=== PATIENT | female | born 1950 | race Caucasian/White ===

== ENCOUNTER 2020-06-28 12:30 | Emergency (ER) | payer MEDICARE, MEDICAID, SELFPAY ==
[2020-06-28 12:41] VITALS: RESP 18; TEMP 36.6; BMI 15.8
[2020-06-28 12:53] VITALS: BP 117/63; PULSE 88; TEMP 36.6; O2SAT 98
[2020-06-28 12:58] LABS: Glucose, Whole Blood 112 mg/dL (60-115)
--- NOTE | 2020-06-28 13:01 | ED.FALL ---
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 prominent bilateral perihilar markings but no confluent infiltrate or pleural effusion. The heart size and pulmonary vascularity is normal. No gross bony abnormality seen. XR/XR knee LT 2V IMPRESSION: No acute fracture or dislocation right knee. There is mild degenerative changes medial and patellofemoral compartments. Prominent bilateral parahilar markings but no confluent infiltrate or pleural effusion. Dictated By:NGOC ARGUETA MD Signed By:<Electronically signed by NGOC ARGUETA MD in OV>06/28/20 1457 DD/ 1302 TD/TT: Food [employer] Beverage Lead: KANE ECG Data Interpretation: Normal sinus rhythm Rate 85 NJ interval within normal limits No ectopy No acute ST segment changes No significant change from previous Critical Care Time Critical Care Time Critical Care Time: Yes Total Critical Care Time: 65 Attestation: Rapid evaluation upon arrival. Multiple re-evaluation including neurological exam, consultation to neurosurgical team at [facility] for consultation and transfer to [facility] for further evaluation. Discharge Plan Discharge Clinical Impression: Fall, Contusion, Abnormal CT scan, cervical spine, Unsteady gait Patient Disposition: Xfer Other Prescriptions: No Action levothyroxine 25 mcg tablet 25 mcg PO QAM Qty: 90 RF: 2 docusate sodium 100 mg capsule 100 mg PO DAILY PRN (Reason: constipation) 90 Days Qty: 90 RF: 4 solifenacin [Vesicare] 5 mg tablet 5 mg PO DAILY RF: 0 Myrbetriq 25 mg tablet extended release 24 hr 25 mg PO DAILY RF: 0 lisinopril 5 mg tablet 5 mg PO DAILY RF: 0 acetaminophen 325 mg tablet 650 mg PO Q6H PRN (Reason: pain) RF: 0 fluoxetine 40 mg capsule PO RF: 0 polyethylene glycol 3350 17 gram/dose powder 1 - 2 g PO DAILY RF: 0 lithium carbonate 300 mg capsule 300 mg PO BEDTIME RF: 0 lamotrigine 150 mg tablet 150 mg PO BID RF: 0
--- NOTE | 2020-06-28 13:03 | ECG_ITS ---
Test Reason : FALL Blood Pressure : / mmHG Vent. Rate : 085 BPM Atrial Rate : 085 BPM P-R Int : 144 ms QRS Dur : 098 ms QT Int : 410 ms P-R-T Axes : 060 064 059 degrees QTc Int : 487 ms Normal sinus rhythm Normal ECG When compared with ECG of 04-MAR-2019 20:04, T wave amplitude has decreased in Lateral leads Referred By: Aftab Auguste Electronically Signed By:BARBRA BHATTI
[2020-06-28 13:20] LABS: Basophils Percent Auto 0.3 % (0-2); Hematocrit 37.8 % (37-47); Hemoglobin 12.3 g/dl (12.0-16.0); Imm Gran Abs Auto 0.07 X10*3/uL (0.00-0.03); Imm Gran Pct Auto 0.5 % (0.0-0.4); Lymphocytes Absolute Auto 0.4 X10*3/uL (1.2-4.9); Lymphocytes Percent Auto 3.1 % (20-40); MANUAL DIFF FLAG NO; Mean Corpuscular HGB Conc 32.5 g/dl (31.0-35.0); Mean Corpuscular Hemoglobin 31.9 pg (27.0-33.0); Mean Corpuscular Volume 98.2 fL (80-98); Mean Platelet Volume 9.7 fL (9.4-12.3); Monocytes Absolute Auto 0.8 X10*3/uL (0.1-1.2); Monocytes Percent Auto 6.2 % (2-11); Neutrophils Absolute Auto 12.1 X10*3/uL (2.0-8.3); Neutrophils Percent Auto 89.9 % (45-73); Platelet Count 227 X10*3/uL (160-400); Red Blood Count 3.85 X10*6/uL (4.20-5.50); Red Cell Distribution Width 11.9 % (11.0-16.0); SCAN SMEAR FLAG 1; White Blood Count 13.5 X10*3/uL (4.8-10.8)
[2020-06-28 13:31] LABS: Prothrombin Time 11.7 SEC (10.8-13.0)
[2020-06-28 13:34] LABS: Partial Thromboplastin Time 29.9 SEC (24.1-38.0)
[2020-06-28 13:44] LABS: Alanine Aminotransferase 30 U/L (0-31); Albumin Level 4.4 g/dL (3.5-5.0); Alkaline Phosphatase 86 U/L (39-117); Anion Gap 13 (12-20); Aspartate Amino Transferase 37 U/L (5-31); Bilirubin Total 0.8 mg/dL (0.0-1.0); Blood Urea Nitrogen 29 mg/dL (9-16); Calcium 10.3 mg/dL (8.4-10.2); Carbon Dioxide 27 mmol/L (22-29); Chloride 108 mmol/L (96-108); Creatinine Clr Calc Pharmacy 41.4; Estimated Glomerular Filt Rate 60; Glucose Random 119 mg/dL (60-115); Potassium 4.2 mmol/l (3.3-5.1); Sodium 144 mmol/L (135-145); Total Protein 6.8 g/dL (6.5-8.0)
[2020-06-28 13:48] LABS: Troponin-I High Sensitivity 7.2 ng/L (<3.5-17.0)
[2020-06-28 13:56] VITALS: BP 108/60; PULSE 84; RESP 18; O2SAT 98
[2020-06-28] MEDS: 0.9 % Sodium Chloride 1,000 ML 999 ML IV (13:56)
[2020-06-28 14:00] LABS: COVID-19 Test Negative (Negative)
[2020-06-28 14:22] LABS: Appearance Urine CLEAR; Color Urine YELLOW; Glucose Urine UA NEG (NEG); Leukocyte Esterase Urine NEG (NEG); Nitrite Urine NEG (NEG); Urine Blood TRACE (NEG); Urine Ketones 5 MG/DL (NEG); Urine Protein NEG (NEG-TRACE)
[2020-06-28 14:33] LABS: Squamous Epithelial Cell Urine TRACE /LPF; WBC Urine 0 /HPF (0-4)
[2020-06-28 15:40] VITALS: BP 126/61; PULSE 85; RESP 20; TEMP 36.6; O2SAT 95
--- NOTE | 2020-06-28 15:43 | PC.NURSE ---
CALL PLACED TO [facility] PT TX LINE @ TRADE SPECIALIST LUIS ENRIQUE REQUEST @ [phone] ANSWERS, TAKES PT INFO, CALL BACK NUMBER AND ASKS TO SPEAK WITH LUIS ENRIQUE . LUIS ENRIQUE TAKES OVER CALL RIGHT AWAY.
--- NOTE | 2020-06-28 15:51 | PC.NURSE ---
RETURN CALL FROM NICO FROM THE [facility] PT TX LINE @ [phone] ASKS TO SPEAK WITH GAS WELDING EQUIPMENT MECHANIC LUIS ENRIQUE LUIS ENRIQUE TAKES OVER CALL RIGHT AWAY
--- NOTE | 2020-06-28 17:24 | PC.NURSE ---
Pt resting on stretcher, denies pain/discomfort. Collar intact. Awaiting to hear back from [facility]
--- NOTE | 2020-06-28 18:25 | PC.NURSE ---
Spoke with Amelia (from [facility]) with permission of pt, updated on plan at this time.
[2020-06-28 19:01] VITALS: BP 124/68; PULSE 82; RESP 15
--- NOTE | 2020-06-28 19:10 | PC.NURSE ---
Awaiting [facility] to view images and give recomendations for patient care.
[2020-06-28 19:46] VITALS: BP 124/61; PULSE 83; RESP 17
--- NOTE | 2020-06-28 19:46 | PC.NURSE ---
NURSE TO NURSE GIVEN TO ROBERTO HODGES AT [facility].
== END 2020-06-28 19:53 | disposition other institution (70) ==
PROVIDERS: Nurse Practitioner Primary Care; Emergency Provider Emergency Medicine
DX: S80.01XA Contusion of right knee, initial encounter (principal); S80.02XA Contusion of left knee, initial encounter; M25.562 Pain in left knee; M25.561 Pain in right knee; M54.5 Low back pain; M54.2 Cervicalgia; W18.30XA Fall on same level, unspecified, initial encounter; Y93.9 Activity, unspecified; Y92.009 Unspecified place in unspecified non-institutional (private) residence as the place of occurrence of the external cause; Y99.9 Unspecified external cause status; Z79.899 Other long term (current) drug therapy; Z20.828 Contact with and (suspected) exposure to other viral communicable diseases
CPT/HCPCS: 36415; 70450; 71045; 72125; 73560; 74176; 80053; 81001; 82550; 82947; 84484; 85025; 85610; 85730; 87635; 93005; 96360; 99285; 99291

== ENCOUNTER 2020-08-24 01:19 | Emergency (ER) | payer MEDICARE, MEDICAID, SELFPAY ==
[2020-08-24] VITALS (10 sets, daily range): BP systolic 100–140; BP diastolic 60–86; PULSE 63–77; RESP 15–18; TEMP 36.6; O2SAT 97–98; BMI 18.6
--- NOTE | ~2020-08-24 | XR_ITS ---
EXAMINATION: XR HIP, RIGHT CLINICAL INFORMATION: Fall with pain COMPARISON: None TECHNIQUE: Two views of the right hip. Frontal view of the pelvis. FINDINGS: There is no fracture or dislocation. The hips are well aligned. Mild degenerative changes of both hips with narrowing and sclerosis. The pelvic rim is intact. The sacroiliac joints are intact. Degenerative changes noted at the pubic symphysis. The bowel gas pattern is unremarkable. Scoliotic curvature of the spine with degenerative changes. XR/XR hip RT w PEL1V IMPRESSION: No acute fracture or malalignment. Mild degenerative changes.
[2020-08-24] MEDS: 0.9 % Sodium Chloride 1,000 ML 999 ML IV ×2 (01:51→05:31)
--- NOTE | 2020-08-24 01:51 | ECG_ITS ---
Test Reason : FALL Blood Pressure : / mmHG Vent. Rate : 068 BPM Atrial Rate : 267 BPM P-R Int : 000 ms QRS Dur : 098 ms QT Int : 420 ms P-R-T Axes : 031 073 072 degrees QTc Int : 446 ms Normal sinus rhythm Minimal voltage criteria for LVH, may be normal variant Abnormal ECG When compared with ECG of 28-JUN-2020 12:59, No significant changes seen Referred By: Bonny Saunders Electronically Signed By:BARBRA BHATTI
--- NOTE | 2020-08-24 01:52 | ED.FALL ---
HPI - Fall General Chief Complaint: Fall Stated Complaint: FALL T-1, W/WEAK/PAIN,NO COVID SX PER EMS Time Seen by Provider: 08/24/20 01:51 Source: patient and other Mode of arrival: EMS History of Present Illness HPI Narrative: This is a 70-year-old female with history of cerebral palsy who is brought in by EMS from [facility] for generalized weakness and right hip pain. As per patient she has been falling a lot and denies any pain other than at her right hip. She states that she has been eating and drinking well and denies any feelings of fever, chills, nausea, vomiting, cough, or sore throat. MD complaint: fall Related Data Home Medications Medication Instructions Recorded Confirmed acetaminophen 325 mg tablet 650 mg PO Q6H PRN 03/27/20 03/27/20 fluoxetine 40 mg capsule 40 mg PO Q2D 03/27/20 03/27/20 lamotrigine 150 mg tablet 150 mg PO BID 03/27/20 03/27/20 lisinopril 5 mg tablet 5 mg PO DAILY 03/27/20 03/27/20 lithium carbonate 300 mg capsule 300 mg PO BEDTIME 03/27/20 03/27/20 mirabegron 25 mg tablet,extended 25 mg PO DAILY 03/27/20 03/27/20 release 24 hr polyethylene glycol 3350 17 17 g PO DAILY 03/27/20 03/27/20 gram/dose oral powder solifenacin 5 mg tablet 5 mg PO DAILY 03/27/20 03/27/20 fluoxetine 20 mg PO Q2D 08/24/20 Previous Rx's Medication Instructions Recorded levothyroxine 25 mcg tablet 25 mcg PO QAM #90 tab 05/18/20 docusate sodium 100 mg capsule 100 mg PO DAILY PRN 90 Days #90 cap 05/21/20 Allergies Allergy/AdvReac Type Severity Reaction Status Date / Time clarithromycin Allergy Severe ANAPHYLAXIS Verified 08/24/20 03:48 Penicillins Allergy Mild RASH Verified 08/24/20 03:48 penicillin V Allergy Unknown rash Verified 08/24/20 03:48 aspirin AdvReac Mild UPSET Verified 08/24/20 03:48 STOMACH Biaxin Allergy Unknown rash Uncoded 07/03/19 00:00 Review of Systems Review of Systems: Pertinent positives and negatives as stated in the HPI and 10 point review of systems is otherwise negative. PMFSH Past Medical History Source: nursing notes reviewed Medical History Cerebral palsy Depression Surgical History History of D&C History of suicide attempt Family History Family History Father CVA (cerebral vascular accident) Aneurysm Mother Hypertension Hyperlipidemia Brother Throat cancer Social History Social History Alcohol intake: never Smoking Status: Never smoker Use of substances other than those prescribed or required for medical reasons: No Advance Directives: No Advance Directives Information Provided: No Physical Exam Vital Signs: Vital Signs: Last Vital Signs Temp 98 F 08/24/20 01:29 Pulse 63 08/24/20 07:30 Resp 15 08/24/20 06:00 BP 115/70 08/24/20 07:30 Pulse Ox 97 08/24/20 07:30 Body Mass Index 18.6 VITAL SIGNS: Reviewed. GENERAL: Cachectic, in no acute distress. HEAD: Normocephalic/atraumatic, EYES: PERRLA, EOMI intact without pain EARS: Ext canals without abnormality, TMs non-bulging and non-erythematous NOSE: Nares patent bilateral OROPHARYNX: no oral lesions noted, posterior pharynx clear, dry mucosa NECK: Supple, no adenopathy LUNGS: Normal breath sounds. No adventitious sounds or accessory muscle use. SpO2<97> CARDIOVASCULAR: Regular rate and rhythm without noted murmurs ABDOMEN: Soft, non-tender, non-distended with bowel sounds. CLYDE: No inflamed external hemorrhoids, no gross bleeding, soft stool in rectal vault and no gross bleeding or melena noted to finger, good rectal tone. MUSCULOSKELETAL: No tenderness, deformities, or effusions noted on gross inspection, but scattered ecchymoses noted to extremities as documented in the skin exam. EXTREMITIES: No cyanosis, clubbing or edema. SKIN: Inspection of the skin reveals no rashes, ulcerations, but multiple ecchymoses noted at bilateral upper and lower extremities NEUROLOGIC: Alert, baseline movement disorder, but purposeful movement on instruction and no sensory deficits Course Course Course Narrative: This is a 70-year-old female with history and clinical presentation consistent with multiple falls and has underlying cerebral palsy. There are numerous ecchymoses in various stages of healing consistent with reported history. Will rule out evidence of infection, anemia, arrhythmia as well as x-rays of pelvis/hip. 1 L of IV fluids. On review of all investigations there is a noted 2 g drop in hemoglobin when compared to prior 06/28/20 but patient is noted on comparison to fluctuate in this range and CLYDE was negative for occult blood, otherwise lab work was noted to be chronic and stable. Urinalysis was negative for evidence of UTI. Patient put in for case management and physical therapy evaluation as she will need increased level of care. MDM - Fall Lab Data Result diagrams: 08/24/20 02:40 08/24/20 02:40 Labs: Lab Results 08/24/20 08/24/20 08/24/20 Range/Units 02:40 02:40 02:40 WBC 8.0 (4.8-10.8) X10*3/uL RBC 3.18 L (4.20-5.50) X10*6/uL Hgb 10.0 L (12.0-16.0) g/dl Hct 31.2 L (37-47) % MCV 98.1 H (80-98) fL MCH 31.4 (27.0-33.0) pg MCHC 32.1 (31.0-35.0) g/dl RDW 12.9 (11.0-16.0) % Plt Count 252 (160-400) X10*3/uL MPV 9.7 (9.4-12.3) fL Immature Gran % (Auto) 0.2 (0.0-0.4) % Neut % (Auto) 72.2 (45-73) % Lymph % (Auto) 13.9 L (20-40) % [place] % (Auto) 12.2 H (2-11) % Eos % (Auto) 1.0 (0-4) % Baso % (Auto) 0.5 (0-2) % Lymph # (Auto) 1.1 L (1.2-4.9) X10*3/uL [place] # (Auto) 1.0 (0.1-1.2) X10*3/uL Eos # (Auto) 0.1 (0.0-0.4) X10*3/uL Baso # (Auto) 0.0 (0.0-0.2) X10*3/uL Abs Immat Gran (auto) 0.02 (0.00-0.03) X10*3/uL Absolute Neuts (auto) 5.8 (2.0-8.3) X10*3/uL Absolute Nucleated RBC 0.000 (0.0-0.012) X10*3/uL Nucleated RBC % (auto) 0.0 (0.0-0.2) /100WBC Sodium 141 (135-145) mmol/L Potassium 3.7 (3.3-5.1) mmol/L Chloride 109 H (96-108) mmol/L Carbon Dioxide 25 (22-29) mmol/L Anion Gap 11 L (12-20) BUN 20 H (9-16) mg/dL Creatinine 0.88 (0.5-1.4) mg/dL Estim Creat Clear Calc 43.4 Estimated GFR > 60 Random Glucose 91 (60-115) mg/dL Calcium 9.2 D (8.4-10.2) mg/dL Total Bilirubin 0.9 (0.0-1.0) mg/dL AST 71 H (5-31) U/L ALT 31 (0-31) U/L Alkaline Phosphatase 62 D (39-117) U/L Total Protein 5.7 L (6.5-8.0) g/dL Albumin 3.8 (3.5-5.0) g/dL Urine Color YELLOW Urine Appearance CLEAR Urine pH 6.0 (5.0-8.0) Ur Specific Bryant 1.010 (1.005-1.025) Urine Protein NEG (NEG-TRACE) MG/DL Urine Glucose (UA) NEG (NEG) MG/DL Urine Ketones NEG (NEG) MG/DL Urine Blood NEG (NEG) Urine Nitrite NEG (NEG) Ur Leukocyte Esterase NEG (NEG) Stool Occult Blood (NEG) 08/24/20 Range/Units 05:30 WBC (4.8-10.8) X10*3/uL RBC (4.20-5.50) X10*6/uL Hgb (12.0-16.0) g/dl Hct (37-47) % MCV (80-98) fL MCH (27.0-33.0) pg MCHC (31.0-35.0) g/dl RDW (11.0-16.0) % Plt Count (160-400) X10*3/uL MPV (9.4-12.3) fL Immature Gran % (Auto) (0.0-0.4) % Neut % (Auto) (45-73) % Lymph % (Auto) (20-40) % [place] % (Auto) (2-11) % Eos % (Auto) (0-4) % Baso % (Auto) (0-2) % Lymph # (Auto) (1.2-4.9) X10*3/uL [place] # (Auto) (0.1-1.2) X10*3/uL Eos # (Auto) (0.0-0.4) X10*3/uL Baso # (Auto) (0.0-0.2) X10*3/uL Abs Immat Gran (auto) (0.00-0.03) X10*3/uL Absolute Neuts (auto) (2.0-8.3) X10*3/uL Absolute Nucleated RBC (0.0-0.012) X10*3/uL Nucleated RBC % (auto) (0.0-0.2) /100WBC Sodium (135-145) mmol/L Potassium (3.3-5.1) mmol/L Chloride (96-108) mmol/L Carbon Dioxide (22-29) mmol/L Anion Gap (12-20) BUN (9-16) mg/dL Creatinine (0.5-1.4) mg/dL Estim Creat Clear Calc Estimated GFR Random Glucose (60-115) mg/dL Calcium (8.4-10.2) mg/dL Total Bilirubin (0.0-1.0) mg/dL AST (5-31) U/L ALT (0-31) U/L Alkaline Phosphatase (39-117) U/L Total Protein (6.5-8.0) g/dL Albumin (3.5-5.0) g/dL Urine Color Urine Appearance Urine pH (5.0-8.0) Ur Specific Bryant (1.005-1.025) Urine Protein (NEG-TRACE) MG/DL Urine Glucose (UA) (NEG) MG/DL Urine Ketones (NEG) MG/DL Urine Blood (NEG) Urine Nitrite (NEG) Ur Leukocyte Esterase (NEG) Stool Occult Blood NEG (NEG) ECG Data Attestation: I personally reviewed and interpreted this ECG as follows: Prior ECG tracings: available for review (06/28/2020 no acute changes on comparison.) Interpretation: Normal sinus rhythm despite being read as atrial fibrillation there are P-waves identified, HR-68, QRS/QTC are within normal limits. No evidence of acute ischemia. Discharge Plan Discharge Prescriptions: No Action levothyroxine 25 mcg tablet 25 mcg PO QAM Qty: 90 RF: 2 docusate sodium 100 mg capsule 100 mg PO DAILY PRN (Reason: constipation) 90 Days Qty: 90 RF: 4 fluoxetine 20 mg Capsule 20 mg PO Q2D RF: 0 solifenacin [Vesicare] 5 mg tablet 5 mg PO DAILY RF: 0 Myrbetriq 25 mg tablet extended release 24 hr 25 mg PO DAILY RF: 0 lisinopril 5 mg tablet 5 mg PO DAILY RF: 0 acetaminophen 325 mg tablet 650 mg PO Q6H PRN (Reason: pain) RF: 0 fluoxetine 40 mg capsule 40 mg PO Q2D RF: 0 polyethylene glycol 3350 17 gram/dose powder 17 g PO DAILY RF: 0 lithium carbonate 300 mg capsule 300 mg PO BEDTIME RF: 0 lamotrigine 150 mg tablet 150 mg PO BID RF: 0
[2020-08-24 02:46] LABS: Basophils Percent Auto 0.5 % (0-2); Eosinophils Absolute Auto 0.1 X10*3/uL (0.0-0.4); Hematocrit 31.2 % (37-47); Imm Gran Abs Auto 0.02 X10*3/uL (0.00-0.03); Imm Gran Pct Auto 0.2 % (0.0-0.4); Lymphocytes Absolute Auto 1.1 X10*3/uL (1.2-4.9); Lymphocytes Percent Auto 13.9 % (20-40); MANUAL DIFF FLAG NO; Mean Corpuscular HGB Conc 32.1 g/dl (31.0-35.0); Mean Corpuscular Hemoglobin 31.4 pg (27.0-33.0); Mean Corpuscular Volume 98.1 fL (80-98); Mean Platelet Volume 9.7 fL (9.4-12.3); Monocytes Percent Auto 12.2 % (2-11); Neutrophils Absolute Auto 5.8 X10*3/uL (2.0-8.3); Neutrophils Percent Auto 72.2 % (45-73); Platelet Count 252 X10*3/uL (160-400); Red Blood Count 3.18 X10*6/uL (4.20-5.50); Red Cell Distribution Width 12.9 % (11.0-16.0)
[2020-08-24 02:48] LABS: Appearance Urine CLEAR; Color Urine YELLOW; Glucose Urine UA NEG (NEG); Leukocyte Esterase Urine NEG (NEG); Nitrite Urine NEG (NEG); UACC Culture Trigger NO; Urine Blood NEG (NEG); Urine Ketones NEG (NEG); Urine Protein NEG (NEG-TRACE)
[2020-08-24 03:20] LABS: Alanine Aminotransferase 31 U/L (0-31); Albumin Level 3.8 g/dL (3.5-5.0); Alkaline Phosphatase 62 U/L (39-117); Anion Gap 11 (12-20); Aspartate Amino Transferase 71 U/L (5-31); Bilirubin Total 0.9 mg/dL (0.0-1.0); Blood Urea Nitrogen 20 mg/dL (9-16); Calcium 9.2 mg/dL (8.4-10.2); Carbon Dioxide 25 mmol/L (22-29); Chloride 109 mmol/L (96-108); Creatinine Clr Calc Pharmacy 43.4; Estimated Glomerular Filt Rate > 60; Glucose Random 91 mg/dL (60-115); Potassium 3.7 mmol/L (3.3-5.1); Sodium 141 mmol/L (135-145); Total Protein 5.7 g/dL (6.5-8.0)
[2020-08-24 05:36] LABS: OBS Int Ctl Valid YES; OBS1 NEG (NEG)
--- NOTE | 2020-08-24 07:23 | PC.NURSE ---
PT OOB WITH PHYSICAL THERAPY, WITH WALKER.
--- NOTE | 2020-08-24 07:53 | PC.NURSE ---
CONACTED PATIENTS BROTHER PT IS FROM [facility] IN [place]
--- NOTE | 2020-08-24 08:03 | PC.NURSE ---
SPOKE WITH BORIS FROM [facility], STATES CONCERN FOR PT WITH INCREASED WEAKNESS IN LEGS AND INCREASED MUSCLE TWITCHING, FEELS PT IS AT RISK OF INCRASED FALLS AND WOULD BENEFIT FROM REHAB FOR STRENGTH TRAINING.
[2020-08-24 10:11] LABS: COVID-19 Test Negative (Negative); IDNOW Serial# 9DD0AD1C
--- NOTE | 2020-08-24 10:59 | MHC.CM.ED ---
i spoke c pt's brother/hcp - cody , ph: [phone], despite the recommendation from pt's PT eval for LTC or 24/7 care at home, he would like patient to return to [facility]. he does not want patient to go to STR/SNF/LTC. cody called the director of Radha Ocampo at ph:[phone]; she is in agreement for patient to return to [place]. pt is suppose to have svcs from [facility] which were referred from [facility].. it is unclear weather or not these svcs have started yet, hence a ref. to [facility] for nsg, home PT and OT has been made. i have called director of radha Ocampo, to confirm acceptance of patient. pt will return to [facility] via [facility] at 11:30 AM. rn, pa and e.d. sec. are aware of this dc plan. cm to cont. to follow.
--- NOTE | 2020-08-24 11:15 | PC.NURSE ---
report given to radha, at [facility], she has no questions at this time and her brother ria is setting up vna/pt out patient for her
== END 2020-08-24 12:11 | disposition home or self-care (01) ==
PROVIDERS: Emergency Provider Student in an Organized Health Care Education/Training Program
DX: R53.1 Weakness (principal); Z20.822 Contact with and (suspected) exposure to COVID-19; M25.551 Pain in right hip; G80.9 Cerebral palsy, unspecified; Z91.81 History of falling
CPT/HCPCS: 36415; 73502; 80053; 81003; 82272; 85025; 87635; 93005; 96360; 96361; 97162; 99284; 99285

== ENCOUNTER 2020-09-04 12:11 | Outpatient (REF) | payer MEDICARE, MEDICAID, SELFPAY ==
[2020-09-04 14:43] LABS: Free T4 (Free Thyroxine) 1.04 ng/dL (0.71-1.85); Thyroid Stimulating Hormone 0.96 uIU/mL (0.32-4.0)
== END 2020-09-04 12:12 | disposition home or self-care (01) ==
LOC: HO.WFDLDS 12:11
PROVIDERS: Visit Provider Family Medicine
DX: E03.9 Hypothyroidism, unspecified (principal)
CPT/HCPCS: 36415; 84439; 84443; 84481

== ENCOUNTER 2020-10-10 04:43 | Emergency (ER) | payer MEDICARE, MEDICAID, SELFPAY ==
--- NOTE | ~2020-10-10 | CT_ITS ---
EXAMINATIONS: CT HEAD WITHOUT CONTRAST AND CT CERVICAL SPINE WITHOUT CONTRAST CLINICAL INFORMATION: Fall. Trauma. COMPARISON: 06/28/2020. TECHNIQUE: Contiguous helical images of the brain were obtained without IV contrast. Contiguous helical images of the cervical spine were obtained without IV contrast. Multiplanar reconstructions were performed. Examination is significantly limited secondary to extensive and repeated patient motion artifact. DLP: 677 mGy-cm. FINDINGS: The examination is significantly limited secondary to extensive and repeated patient motion artifact. There are no pathologic extra-axial fluid collections. The lateral, third, fourth ventricles are prominent, though stable, age-appropriate and concordant with the appearance of the sulci. There is no evidence for acute intraparenchymal hemorrhage or infarct. There is neither mass nor mass effect. There is no shift of midline structures. The paranasal sinuses and mastoid air cells are clear. There are no osseous lesions. No acute cervical spinal fractures are identified. Again identified is anterior displacement of C5 upon C6. Posterior spinal hardware is intact. There is no cervical lymphadenopathy. The visualized lung apices are clear. CT/CT cervical spine wo con IMPRESSION: Significantly limited examination secondary to extensive and repeated patient motion. However, there is no demonstrable evidence for acute intracranial injury with the limited imaging. No evidence for acute injury to the cervical spine. Stable chronic changes within the cervical spine. Automated exposure control (Care Dose) Adjustment of the mA and/or kv according to patient size (this includes techniques or standardized protocols for targeted exams where dose is matched to indication / reason for exam; i.e. extremities or head).
--- NOTE | ~2020-10-10 | CT_ITS ---
EXAMINATIONS: CT HEAD WITHOUT CONTRAST AND CT CERVICAL SPINE WITHOUT CONTRAST CLINICAL INFORMATION: Fall. Trauma. COMPARISON: 06/28/2020. TECHNIQUE: Contiguous helical images of the brain were obtained without IV contrast. Contiguous helical images of the cervical spine were obtained without IV contrast. Multiplanar reconstructions were performed. Examination is significantly limited secondary to extensive and repeated patient motion artifact. DLP: 677 mGy-cm. FINDINGS: The examination is significantly limited secondary to extensive and repeated patient motion artifact. There are no pathologic extra-axial fluid collections. The lateral, third, fourth ventricles are prominent, though stable, age-appropriate and concordant with the appearance of the sulci. There is no evidence for acute intraparenchymal hemorrhage or infarct. There is neither mass nor mass effect. There is no shift of midline structures. The paranasal sinuses and mastoid air cells are clear. There are no osseous lesions. No acute cervical spinal fractures are identified. Again identified is anterior displacement of C5 upon C6. Posterior spinal hardware is intact. There is no cervical lymphadenopathy. The visualized lung apices are clear. CT/CT head/brain wo con IMPRESSION: Significantly limited examination secondary to extensive and repeated patient motion. However, there is no demonstrable evidence for acute intracranial injury with the limited imaging. No evidence for acute injury to the cervical spine. Stable chronic changes within the cervical spine. Automated exposure control (Care Dose) Adjustment of the mA and/or kv according to patient size (this includes techniques or standardized protocols for targeted exams where dose is matched to indication / reason for exam; i.e. extremities or head).
[2020-10-10 04:55] VITALS: BP 145/80; PULSE 84; RESP 16; TEMP 37; O2SAT 97; O2SAT 98; BMI 19.9
[2020-10-10 06:00] VITALS: BP 132/72; PULSE 92; RESP 15; O2SAT 98
--- NOTE | 2020-10-10 06:34 | ED_ITS ---
HPI - Fall General Chief Complaint: Fall Stated Complaint: Fall Time Seen by Provider: 10/10/20 06:33 Source: patient and EMS Mode of arrival: EMS Limitations: other (mild cognitive impairment) History of Present Illness HPI Narrative: 70 yo male not on AC therapy has CP, depression sent after a fall out of bed, c/o head and neck pain no other injuries reported, has cervical collar on MD complaint: fall Onset (ago): minute(s) Fall from: out of bed Fall witnessed: no Place fall occurred: [facility] Loss of consciousness: none Prolonged down time: no Symptoms prior to fall: none Context: tripped/slipped Location of injury: head and neck Severity: moderate Quality: dull Associated symptoms (after fall): denies Related Data Previous Rx's Medication Instructions Recorded acetaminophen 325 mg tablet 650 mg PO Q6H PRN #240 tab 09/13/20 docusate sodium 100 mg capsule 100 mg PO DAILY #30 cap 09/13/20 fluoxetine 20 mg capsule 20 mg PO Q2D #30 cap 09/13/20 fluoxetine 40 mg capsule 40 mg PO Q2D #30 cap 09/13/20 lamotrigine 150 mg tablet 150 mg PO BID #60 tab 09/13/20 lithium carbonate 300 mg capsule 300 mg PO BEDTIME 30 Days #30 cap 09/13/20 lysine 500 mg tablet 500 mg PO DAILY 90 Days #90 tab 09/13/20 mirabegron 25 mg tablet,extended 25 mg PO DAILY #30 tab 09/13/20 release 24 hr multivitamin 1 tab PO DAILY 90 Days #90 tab 09/13/20 polyethylene glycol 3350 17 17 g PO DAILY PRN #238 g 09/13/20 gram/dose oral powder Allergies Allergy/AdvReac Type Severity Reaction Status Date / Time clarithromycin Allergy Severe ANAPHYLAXIS Verified 10/10/20 04:54 Penicillins Allergy Mild RASH Verified 10/10/20 04:54 penicillin V Allergy Unknown rash Verified 10/10/20 04:54 aspirin AdvReac Mild UPSET Verified 10/10/20 04:54 STOMACH Biaxin Allergy Unknown rash Uncoded 07/03/19 00:00 Review of Systems Review of Systems: Constitutional : No Fever, No Chills ENT/Mouth : No Ear Pain, No Hoarseness, No sore throat, pos neck pain Eyes: No Eye Pain, No Swelling, No Redness, No Foreign Body Cardiovascular : No Chest Pain, No SOB Respiratory : No Cough, No Dyspnea Gastrointestinal : No Nausea, No Vomiting, No Diarrhea, No abdominal Pain Genitourinary : No Dysuria, No Hematuria Musculoskeletal : no joint pain, No Myalgias, No Joint Swelling Skin : No Skin lacerations, No rash Neuro : No Weakness, No Numbness, No Loss of Consciousness, No Dizziness, No Headache All other systems reviewed and are negative [facility] Past Medical History Attestation statement: The following information was validated with the patient. Medical History Cerebral palsy Depression Surgical History History of D&C History of suicide attempt Family History Family History Father CVA (cerebral vascular accident) Aneurysm Mother Hypertension Hyperlipidemia Brother Throat cancer Social History Social History Alcohol intake: never Smoking Status: Never smoker Use of substances other than those prescribed or required for medical reasons: No Advance Directives: No Advance Directives Information Provided: No Physical Exam Vital Signs: Vital Signs: Last Vital Signs Temp 98.6 F 10/10/20 04:55 Pulse 92 10/10/20 06:00 Resp 15 10/10/20 06:00 BP 132/72 10/10/20 06:00 Pulse Ox 98 10/10/20 06:00 Body Mass Index 19.9 Appearance: Alert. Oriented X2. No acute distress. Eyes: Pupils equal, round and reactive to light. ENT: Pharynx dry MM Neck: Normal inspection. Neck supple. Collar in place but moving all around CVS: Normal heart rate and rhythm. Pulses normal. Respiratory: No respiratory distress. Breath sounds normal. Abdomen: Soft and nontender. Skin: Skin warm and dry. Normal skin color. Normal skin turgor. Extremities: No lower extremity edema. No calf ttp full ROM and axial loading no pain Neuro: Oriented X 2. No motor deficit. No sensory deficit. Spastic movements MDM - Fall MDM Narrative Medical decision making narrative: 70 yo female not on AC therapy with CP states she slipped out of her bed and hit the back of her head and neck has prior neck issues, NV intact, moving neck all around, no CP/SOB dizziness, denies any other injuries, CT head/neck for trauma ordered Discharge Plan Discharge Clinical Impression: Acute neck pain Fall Qualifiers: Encounter type: initial encounter Qualified Code(s): W19.XXXA - Unspecified fall, initial encounter Patient Disposition: Xfer [facility] Instructions: Fall Prevention for Older Adults (ED), Acute Neck Pain (ED) Additional Instructions: return to ED for any worsening symptoms or concerns negative CT head/cervical spine CT for trauma Prescriptions: No Action polyethylene glycol 3350 17 gram/dose powder 17 g PO DAILY PRN (Reason: Constipation) Qty: 238 RF: 2 multivitamin Tablet 1 tab PO DAILY 90 Days Qty: 90 RF: 4 lysine 500 mg tablet 500 mg PO DAILY 90 Days Qty: 90 RF: 4 lithium carbonate 300 mg capsule 300 mg PO BEDTIME 30 Days Qty: 30 RF: 1 Myrbetriq 25 mg tablet extended release 24 hr 25 mg PO DAILY Qty: 30 RF: 2 fluoxetine 40 mg capsule 40 mg PO Q2D Qty: 30 RF: 2 fluoxetine 20 mg capsule 20 mg PO Q2D Qty: 30 RF: 2 docusate sodium 100 mg capsule 100 mg PO DAILY Qty: 30 RF: 2 acetaminophen 325 mg tablet 650 mg PO Q6H PRN (Reason: pain) Qty: 240 RF: 1 lamotrigine 150 mg tablet 150 mg PO BID Qty: 60 RF: 2
[2020-10-10 07:48] VITALS: BP 130/73; PULSE 73; RESP 16; O2SAT 97
--- NOTE | 2020-10-10 07:48 | PC.NURSE ---
pt amb (I) with walker and contact guard approx 50ft. pt aware of plan of care for transfer home. 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
== END 2020-10-10 08:46 | disposition skilled nursing facility (03) ==
PROVIDERS: Emergency Provider Emergency Medicine; PCP Family Medicine
DX: M54.2 Cervicalgia (principal); Z91.81 History of falling; G80.9 Cerebral palsy, unspecified
CPT/HCPCS: 70450; 72125; 99284

== ENCOUNTER 2020-10-16 11:16 | Outpatient (REF) | payer MEDICARE, MEDICAID, SELFPAY ==
[2020-10-21 06:02] LABS: Lamotrigine Lamictal 6.3 mcg/mL (4.0-18.0)
== END 2020-10-16 11:17 | disposition home or self-care (01) ==
LOC: HO.LAB 11:16
PROVIDERS: Visit Provider Clinical Nurse Specialist Psychiatric/Mental Health, Adult
DX: Z79.899 Other long term (current) drug therapy (principal)
CPT/HCPCS: 36415; 80175

== ENCOUNTER 2021-06-24 15:56 | Emergency (ER) | payer MEDICARE, MEDICAID, SELFPAY ==
--- NOTE | ~2021-06-24 | XR_ITS ---
EXAMINATION: XR CHEST CLINICAL INFORMATION: Shortness of breath COMPARISON: None TECHNIQUE: Frontal view of the chest was obtained. FINDINGS: Normal symmetric lung volumes. No parenchymal consolidation. No pleural effusion. No pneumothorax. Cardiomediastinal silhouette and pulmonary vascularity are within normal limits. No acute osseous abnormalities. XR/XR chest 1V IMPRESSION: Unremarkable examination.
[2021-06-24 16:16] VITALS: BP 129/79; PULSE 80; RESP 18; TEMP 36.7; O2SAT 95; BMI 20.1
--- NOTE | 2021-06-24 16:26 | ED.PSYCH ---
HPI - Psych General Chief Complaint: Psychiatric Symptoms Stated Complaint: SI,SECTION 12 FROM [facility] Time Seen by Provider: 06/25/21 00:39 Source: patient and EMS Mode of arrival: EMS Limitations: no limitations History of Present Illness HPI Narrative: 70-year-old female presents for yet EMS from a senior living facility for vague SI statements. MD complaint: suicidal ideation, feels depressed and anxiety Onset (ago): unknown Duration: changing over time History of same: Yes Relieving factors: none Context: significant life stressor Associated psychiatric symptoms: depression Associated symptoms: denies other symptoms Treatments prior to arrival: placed on mental health hold Related Data Home Medications Medication Instructions Recorded Confirmed lamotrigine 150 mg tablet 150 mg PO BEDTIME 06/24/21 06/24/21 lamotrigine 25 mg tablet 125 tab PO QAM 06/24/21 06/24/21 lithium carbonate 150 mg capsule 150 mg PO QAM 06/24/21 06/24/21 melatonin 1 mg tablet 1 mg PO BEDTIME 06/24/21 06/24/21 sennosides 8.6 mg tablet (senna) 8.6 mg PO Q OTHER DAY 06/24/21 06/24/21 Previous Rx's Medication Instructions Recorded acetaminophen 325 mg tablet 650 mg PO Q6H PRN #240 tab 09/13/20 fluoxetine 20 mg capsule 20 mg PO Q2D #30 cap 09/13/20 fluoxetine 40 mg capsule 40 mg PO Q2D #30 cap 09/13/20 multivitamin 1 tab PO DAILY 90 Days #90 tab 09/13/20 docusate sodium 100 mg capsule 100 mg PO DAILY #28 cap 05/14/21 mirabegron 25 mg tablet,extended 25 mg PO DAILY #28 tab 05/14/21 release 24 hr (Myrbetriq) Allergies Allergy/AdvReac Type Severity Reaction Status Date / Time clarithromycin Allergy Severe ANAPHYLAXIS Verified 06/24/21 16:24 Penicillins Allergy Mild RASH Verified 06/24/21 16:24 penicillin V Allergy Unknown rash Verified 06/24/21 16:24 aspirin AdvReac Mild UPSET Verified 06/24/21 16:24 STOMACH Biaxin Allergy Unknown rash Uncoded 07/03/19 00:00 Review of Systems Review of Systems: Constitutional: No Fever, No Chills ENT/Mouth: No Ear Pain, No Nasal Congestion, No sore throat Eyes: No Eye Pain, No Swelling, No Redness Cardiovascular: No Chest Pain, No SOB Respiratory: No Cough, No Sputum, No Dyspnea Gastrointestinal: No Nausea, No Vomiting, No Diarrhea, No Hematochezia, No Melena Genitourinary: No Dysuria, No Urinary Frequency, No Hematuria Musculoskeletal: No Myalgias Skin: No Skin Lesions, No rash Neuro: No Weakness, No Numbness, No Paresthesias, No Dizziness, No Headache Psych: positive Anxiety, positive Depression, positive SI, no HI Heme/Lymph: No Lymphadenopathy Endocrine: No Polyuria, No Polydipsia Yes all other systems are reviewed and are negative [facility] Past Medical History Attestation statement: The following information was validated with the patient. Source: old records reviewed Medical History Cerebral palsy Depression Surgical History History of D&C History of suicide attempt Family History Family History Father CVA (cerebral vascular accident) Aneurysm Mother Hypertension Hyperlipidemia Brother Throat cancer Social History Social History Alcohol intake: never Advance Directives: No Advance Directives Information Provided: No Healthcare Proxy: No Guardian: No Physical Exam Vital Signs: Vital Signs: Last Vital Signs Temp 98.1 F 06/24/21 16:16 Pulse 80 06/24/21 16:16 Resp 18 06/24/21 16:16 BP 129/79 06/24/21 16:16 Pulse Ox 95 06/24/21 16:16 BMI result Body Mass Index 20.1 Appearance: Alert. Oriented X3. No acute distress. Thin. Eyes: Pupils equal, round and reactive to light. EOMI. No nystagmus. Sclerae nonicteric. ENT: Pharynx normal. White mucus membranes. Neck: Normal inspection. Neck supple. No vertebral tenderness or nuchal rigidity. CVS: Normal heart rate and rhythm. Pulses normal. Respiratory: No respiratory distress. Breath sounds normal. Abdomen: Soft and nontender. Skin: Skin warm and dry. Normal skin color. Normal skin turgor. Extremities: No lower extremity edema. Contractured secondary to cerebral palsy. Gait awkward but balanced with walker per baseline Neuro: No motor deficit. No sensory deficit. Cranial nerves 2-12 intact Course Course Course Narrative: 70-year-old female via EMS for vague suicidal statements made while she was at a senior living facility. longterm facility set up a room for her at [facility] geriatric psych unit however patient has had poor experiences there and and did not want to go. At the time of my assessment, patient is soft-spoken, answering questions slowly but appropriately, compliant with care. Will order labs and psych evaluation. At this time patient does not report suicidal ideation. Is reported by EMS patient's brother was visiting, and left to go back to his home in [place]. Patient was noted to be depressed, nursing reports that her behavior had been off. No real description behavior the exception of vague suicidal ideation, statements that she wanted to jump out of window. Patient has UTI. Plan of care is for inpatient bed search and Psychiatry consult. Section [address] Physician observation[address] MDM - Psych Differential Diagnosis Differential diagnosis: Likely acute psychosis, suicidal ideation, depression and acute anxiety Medical Records Attestation: I reviewed the patient's medical records. Lab Data Attestation: I reviewed the patient's lab results. Result diagrams: 06/24/21 17:21 06/24/21 17:19 Labs: Lab Results 06/24/21 06/24/21 06/24/21 Range/Units 16:47 16:47 16:47 WBC (4.8-10.8) X10*3/uL RBC (4.20-5.50) X10*6/uL Hgb (12.0-16.0) g/dl Hct (37.0-47.0) % MCV (80.0-98.0) fL MCH (27.0-33.0) pg MCHC (31.0-35.0) g/dl RDW (11.0-16.0) % Plt Count (160-400) X10*3/uL MPV (9.4-12.3) fL Immature Gran % (Auto) (0.0-0.4) % Neut % (Auto) (45-73) % Lymph % (Auto) (20-40) % Morrison % (Auto) (2-11) % Eos % (Auto) (0-4) % Baso % (Auto) (0-2) % Lymph # (Auto) (1.2-4.9) X10*3/uL Morrison # (Auto) (0.1-1.2) X10*3/uL Eos # (Auto) (0.0-0.4) X10*3/uL Baso # (Auto) (0.0-0.2) X10*3/uL Abs Immat Gran (auto) (0.00-0.03) X10*3/uL Absolute Neuts (auto) (2.0-8.3) x10*3/uL Absolute Nucleated RBC (0.0-0.012) X10*3/uL Nucleated RBC % (auto) (0.0-0.2) /100WBC Sodium (135-145) mmol/L Potassium (3.3-5.1) mmol/L Chloride (96-108) mmol/L Carbon Dioxide (22-29) mmol/L Anion Gap (12-20) BUN (9-16) mg/dL Creatinine (0.5-1.4) mg/dL Estim Creat Clear Calc Estimated GFR Random Glucose (60-115) mg/dL Calcium (8.4-10.2) mg/dL Total Bilirubin (0.0-1.0) mg/dL AST (5-31) U/L ALT (0-31) U/L Alkaline Phosphatase (39-117) U/L Total Protein (6.5-8.0) g/dL Albumin (3.5-5.0) g/dL Urine Color YELLOW Urine Appearance CLEAR Urine pH 6.5 (5.0-8.0) Ur Specific [place] 1.010 (1.005-1.025) Urine Protein NEG (NEG-TRACE) MG/DL Urine Glucose (UA) NEG (NEG) MG/DL Urine Ketones NEG (NEG) MG/DL Urine Blood NEG (NEG) Urine Nitrite NEG (NEG) Ur Leukocyte Esterase TRACE H (NEG) Urine RBC 1-4 (0) /HPF Urine WBC 1-4 (0-4) /HPF Ur Squamous Epith Cells NONE /LPF Ur Renal Epithelial Cell 1+ /LPF Urine Bacteria NONE /LPF Urine Opiates Screen Not Detected (Not Detect) Urine Fentanyl Screen Not Detected (Not Detect) Ur Barbiturates Screen Not Detected (Not Detect) Ur Phencyclidine Scrn Not Detected (Not Detect) Ur Amphetamines Screen Not Detected (Not Detect) U Benzodiazepines Scrn Not Detected (Not Detect) Urine Cocaine Screen Not Detected (Not Detect) U Marijuana (THC) Screen Not Detected (Not Detect) COVID-19 ([facility]) Negative (Negative) COVID-19 Clin Com See Note 06/24/21 06/24/21 Range/Units 17:19 17:21 WBC 5.7 (4.8-10.8) X10*3/uL RBC 3.63 L (4.20-5.50) X10*6/uL Hgb 11.7 L (12.0-16.0) g/dl Hct 35.8 L (37.0-47.0) % MCV 98.6 H (80.0-98.0) fL MCH 32.2 (27.0-33.0) pg MCHC 32.7 (31.0-35.0) g/dl RDW 12.0 (11.0-16.0) % Plt Count 192 (160-400) X10*3/uL MPV 9.5 (9.4-12.3) fL Immature Gran % (Auto) 0.2 (0.0-0.4) % Neut % (Auto) 64.0 (45-73) % Lymph % (Auto) 21.9 (20-40) % Morrison % (Auto) 11.8 H (2-11) % Eos % (Auto) 1.6 (0-4) % Baso % (Auto) 0.5 (0-2) % Lymph # (Auto) 1.3 (1.2-4.9) X10*3/uL Morrison # (Auto) 0.7 (0.1-1.2) X10*3/uL Eos # (Auto) 0.1 (0.0-0.4) X10*3/uL Baso # (Auto) 0.0 (0.0-0.2) X10*3/uL Abs Immat Gran (auto) 0.01 (0.00-0.03) X10*3/uL Absolute Neuts (auto) 3.7 (2.0-8.3) x10*3/uL Absolute Nucleated RBC 0.000 (0.0-0.012) X10*3/uL Nucleated RBC % (auto) 0.0 (0.0-0.2) /100WBC Sodium 140 (135-145) mmol/L Potassium 4.6 D (3.3-5.1) mmol/L Chloride 105 (96-108) mmol/L Carbon Dioxide 31 H (22-29) mmol/L Anion Gap 9 L (12-20) BUN 24 H (9-16) mg/dL Creatinine 0.80 (0.5-1.4) mg/dL Estim Creat Clear Calc 51.5 Estimated GFR > 60 Random Glucose 100 (60-115) mg/dL Calcium 9.8 D (8.4-10.2) mg/dL Total Bilirubin 0.5 (0.0-1.0) mg/dL AST 16 D (5-31) U/L ALT 19 (0-31) U/L Alkaline Phosphatase 72 (39-117) U/L Total Protein 6.3 L (6.5-8.0) g/dL Albumin 4.0 (3.5-5.0) g/dL Urine Color Urine Appearance Urine pH (5.0-8.0) Ur Specific [place] (1.005-1.025) Urine Protein (NEG-TRACE) MG/DL Urine Glucose (UA) (NEG) MG/DL Urine Ketones (NEG) MG/DL Urine Blood (NEG) Urine Nitrite (NEG) Ur Leukocyte Esterase (NEG) Urine RBC (0) /HPF Urine WBC (0-4) /HPF Ur Squamous Epith Cells /LPF Ur Renal Epithelial Cell /LPF Urine Bacteria /LPF Urine Opiates Screen (Not Detect) Urine Fentanyl Screen (Not Detect) Ur Barbiturates Screen (Not Detect) Ur Phencyclidine Scrn (Not Detect) Ur Amphetamines Screen (Not Detect) U Benzodiazepines Scrn (Not Detect) Urine Cocaine Screen (Not Detect) U Marijuana (THC) Screen (Not Detect) COVID-19 ([facility]) (Negative) COVID-19 Clin Com Discharge Plan Discharge Clinical Impression: Acute psychosis, Depression, Acute anxiety Patient Disposition: Still a Patient Prescriptions: No Action multivitamin Tablet 1 tab PO DAILY 90 Days Qty: 90 RF: 4 fluoxetine 40 mg capsule 40 mg PO Q2D Qty: 30 RF: 2 fluoxetine 20 mg capsule 20 mg PO Q2D Qty: 30 RF: 2 acetaminophen 325 mg tablet 650 mg PO Q6H PRN (Reason: pain) Qty: 240 RF: 1 Myrbetriq 25 mg tablet extended release 24 hr 25 mg PO DAILY Qty: 28 RF: 3 docusate sodium 100 mg capsule 100 mg PO DAILY Qty: 28 RF: 3 lamotrigine 150 mg tablet 150 mg PO BEDTIME RF: 0 lamotrigine 25 mg tablet 125 tab PO QAM RF: 0 lithium carbonate 150 mg capsule 150 mg PO QAM RF: 0 sennosides [senna] 8.6 mg tablet 8.6 mg PO Q OTHER DAY RF: 0 melatonin 1 mg tablet 1 mg PO BEDTIME RF: 0
[2021-06-24 16:59] LABS: Appearance Urine CLEAR; Color Urine YELLOW; Glucose Urine UA NEG (NEG); Leukocyte Esterase Urine TRACE (NEG); Nitrite Urine NEG (NEG); PH 6.5 (5.0-8.0); UACC Culture Trigger YES; Urine Blood NEG (NEG); Urine Ketones NEG (NEG); Urine Protein NEG (NEG-TRACE)
[2021-06-24 17:12] LABS: COVID-19 Test Negative (Negative)
[2021-06-24 17:16] LABS: Amphetamine Screen Urine Not Detected (Not Detect); Barbiturates, Urine Not Detected (Not Detect); Benzodiazepines Screen Urine Not Detected (Not Detect); Cannabinoid Screen Urine Not Detected (Not Detect); Cocaine Screen Urine Not Detected (Not Detect); Fentanyl, urine Not Detected (Not Detect); Opiate Screen Urine Not Detected (Not Detect); Phencyclidine Screen Urine Not Detected (Not Detect)
[2021-06-24 17:25] LABS: MANUAL DIFF FLAG NO
[2021-06-24 17:30] LABS: Basophils Percent Auto 0.5 % (0-2); Eosinophils Absolute Auto 0.1 X10*3/uL (0.0-0.4); Eosinophils Percent Auto 1.6 % (0-4); Hematocrit 35.8 % (37.0-47.0); Hemoglobin 11.7 g/dl (12.0-16.0); Imm Gran Abs Auto 0.01 X10*3/uL (0.00-0.03); Imm Gran Pct Auto 0.2 % (0.0-0.4); Lymphocytes Absolute Auto 1.3 X10*3/uL (1.2-4.9); Lymphocytes Percent Auto 21.9 % (20-40); Mean Corpuscular HGB Conc 32.7 g/dl (31.0-35.0); Mean Corpuscular Hemoglobin 32.2 pg (27.0-33.0); Mean Corpuscular Volume 98.6 fL (80.0-98.0); Mean Platelet Volume 9.5 fL (9.4-12.3); Monocytes Absolute Auto 0.7 X10*3/uL (0.1-1.2); Monocytes Percent Auto 11.8 % (2-11); Neutrophils Absolute Auto 3.7 x10*3/uL (2.0-8.3); Platelet Count 192 X10*3/uL (160-400); Red Blood Count 3.63 X10*6/uL (4.20-5.50); White Blood Count 5.7 X10*3/uL (4.8-10.8)
[2021-06-24 17:53] LABS: Alanine Aminotransferase 19 U/L (0-31); Alkaline Phosphatase 72 U/L (39-117); Anion Gap 9 (12-20); Aspartate Amino Transferase 16 U/L (5-31); Bilirubin Total 0.5 mg/dL (0.0-1.0); Blood Urea Nitrogen 24 mg/dL (9-16); Calcium 9.8 mg/dL (8.4-10.2); Carbon Dioxide 31 mmol/L (22-29); Chloride 105 mmol/L (96-108); Creatinine Clr Calc Pharmacy 51.5; Estimated Glomerular Filt Rate > 60; Glucose Random 100 mg/dL (60-115); Potassium 4.6 mmol/L (3.3-5.1); Sodium 140 mmol/L (135-145); Total Protein 6.3 g/dL (6.5-8.0)
[2021-06-24 18:08] LABS: Renal Epithelial Cells Urine 1+ /LPF
--- NOTE | 2021-06-25 03:05 | PC.NURSE ---
Patient is currently in bed appears sleeping, no distress observed/reported, patient's behavior is appropriate and cooperative, follows direction well, patient is + for UTI is being treated with Ceftin 250 mg BID for 14 days, med rec completed based on the med list faxed by [facility], patient is DNR and DNI for code status copy in chart, patient ambulated with walker but requires supervision for safety, patient was screened by care team and disposition is section 12 inpatient bed search, patient's brother who is her health care proxy and provider made aware of the disposition, VSS, patient is hard of hearing needs extra effort to communicate, will continue to monitor.
[2021-06-25 06:30] VITALS: BP 124/51; PULSE 76; RESP 16; TEMP 36.7; O2SAT 98
--- NOTE | 2021-06-25 07:14 | PC.NURSE ---
patient appeared to remain asleep at beginning of shift respirations are even and unlabored, patient appears in no distress
[2021-06-25 08:14] VITALS: BP 138/88; PULSE 71; RESP 16; TEMP 36.4; O2SAT 97
[2021-06-25] MEDS: Docusate Sodium 100 MG CAPSULE PO (09:23)
[2021-06-25] MEDS: Lithium Carbonate 300 MG TABLET 150 MG PO (09:24)
[2021-06-25] MEDS: Sennosides 8.6 MG TABLET PO (09:24)
[2021-06-25] MEDS: lamoTRIgine 25 MG TABLET 125 MG PO ×2 (09:28→20:09)
[2021-06-25] MEDS: FLUoxetine HCl 20 MG CAPSULE PO (09:28)
[2021-06-25] MEDS: Multivitamin TABLET 1 TAB PO (09:29)
[2021-06-25] MEDS: Mirabegron 25 MG TAB.ER.24H PO (09:29)
--- NOTE | 2021-06-25 15:46 | MHC.CARE ---
Pt's brother, Dwight called for an update on pt. CARE Team explained that the [facility] bed[facility] has been exhausted for the day and that pt may be able to go to one of the adult psych units depending on staffing. 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 CARE Team will continue to work on securing placement for pt. Dwight asked that he be informed of any developments.
[2021-06-25] MEDS: Melatonin 3 MG TABLET 1.5 MG PO (20:09)
[2021-06-25] MEDS: lamoTRIgine 25 MG TABLET 150 MG PO (20:10)
[2021-06-26 05:10] VITALS: BP 125/78; PULSE 74; RESP 18; TEMP 36.6; O2SAT 99
--- NOTE | 2021-06-26 05:12 | PC.NURSE ---
Patient slept through the night, no distress observed/reported, behavior pleasant, cooperative, and supportive, medication compliant, appetite good, elimination intact, patient disposition per [facility] is section 12 inpatient bed search, no update on bed search, VSS, mood pleasant, affect bright, will continue to monitor.
--- NOTE | 2021-06-26 07:00 | PC.NURSE ---
pt appears to remain asleep at present respiratinos are even and unlabored patient appears in no distress
[2021-06-26] MEDS: Mirabegron 25 MG TAB.ER.24H PO (09:01)
[2021-06-26] MEDS: Multivitamin TABLET 1 TAB PO (09:01)
[2021-06-26] MEDS: Lithium Carbonate 300 MG TABLET 150 MG PO (09:01)
[2021-06-26] MEDS: lamoTRIgine 25 MG TABLET 125 MG PO ×2 (09:02→21:12)
[2021-06-26] MEDS: Docusate Sodium 100 MG CAPSULE PO (09:02)
[2021-06-26] MEDS: FLUoxetine HCl 20 MG CAPSULE 40 MG PO (09:03)
--- NOTE | 2021-06-26 15:55 | MHC.CARE ---
[facility] asked to have patient's evaluation sent, they do not have beds at this time but anticipate a discharge soon.
--- NOTE | 2021-06-26 19:42 | MHC.CARE ---
Bedsearch note: No beds available statewide. Pt will continue to board in the ED awaiting placement.
[2021-06-26] MEDS: Melatonin 3 MG TABLET 1.5 MG PO (21:12)
[2021-06-26] MEDS: lamoTRIgine 25 MG TABLET 150 MG PO (21:12)
[2021-06-26 23:59] VITALS: BP 134/81; PULSE 83; RESP 16; TEMP 36.2; O2SAT 99
--- NOTE | 2021-06-27 05:13 | PC.NURSE ---
Patient slept through the night, no distress observed/reported, behavior pleasant, cooperative, and supportive, medication compliant, appetite good, elimination intact, patient disposition per [facility] is section 12 inpatient bed search, no update on bed search, VSS, Code Status DNR/DNI per [facility], will continue to monitor.
--- NOTE | 2021-06-27 06:59 | PC.NURSE ---
patient appears to remain asleep at present respirations are even and unlabored, patient appears in no distress
[2021-06-27] MEDS: Mirabegron 25 MG TAB.ER.24H PO (09:30)
[2021-06-27] MEDS: Lithium Carbonate 300 MG TABLET 150 MG PO (09:30)
[2021-06-27] MEDS: lamoTRIgine 25 MG TABLET 125 MG PO (09:30)
[2021-06-27] MEDS: Multivitamin TABLET 1 TAB PO (09:31)
[2021-06-27] MEDS: Docusate Sodium 100 MG CAPSULE PO (09:31)
[2021-06-27] MEDS: FLUoxetine HCl 20 MG CAPSULE PO (09:31)
[2021-06-27] MEDS: Sennosides 8.6 MG TABLET PO (09:32)
[2021-06-27] MEDS: lamoTRIgine 25 MG TABLET 150 MG PO (20:09)
[2021-06-27] MEDS: Melatonin 3 MG TABLET 1.5 MG PO (20:09)
--- NOTE | 2021-06-28 05:41 | PC.NURSE ---
Patient slept through the night, no distress observed/reported, behavior pleasant, cooperative, and non concerning. medication compliant, appetite good, elimination intact, patient disposition per [facility] is section 12 inpatient bed search, no update on bed search, VSS, will continue to monitor.
[2021-06-28 06:21] VITALS: BP 117/60; PULSE 74; RESP 16; TEMP 36.6; O2SAT 95
--- NOTE | 2021-06-28 07:33 | PC.NURSE ---
Pt awake, walking around. No signs of distress noted. Calm and cooperative. Awaiting inpatient bed assignment. Will continue to monitor.
[2021-06-28] MEDS: Multivitamin TABLET 1 TAB PO (08:27)
[2021-06-28] MEDS: FLUoxetine HCl 20 MG CAPSULE 40 MG PO (08:27)
[2021-06-28] MEDS: Mirabegron 25 MG TAB.ER.24H PO (08:27)
[2021-06-28] MEDS: Lithium Carbonate 300 MG TABLET 150 MG PO (08:27)
[2021-06-28] MEDS: lamoTRIgine 25 MG TABLET 150 MG PO ×2 (08:27→22:09)
[2021-06-28] MEDS: Docusate Sodium 100 MG CAPSULE PO (08:27)
[2021-06-28] MEDS: Melatonin 3 MG TABLET 1.5 MG PO (22:08)
[2021-06-29 03:34] VITALS: BP 119/69; PULSE 64; RESP 16; TEMP 36.7; O2SAT 94
--- NOTE | 2021-06-29 05:42 | PC.NURSE ---
Patient slept through the night, no distress observed/reported, behavior cooperative and non concerning. medication compliant, appetite good, elimination intact, patient disposition per [facility] is section 12 inpatient bed search, no update on bed search, VSS, will continue to monitor.
--- NOTE | 2021-06-29 07:10 | PC.NURSE ---
patient appeared to remain asleep at beginning of shift respirations are even and unlabored patient appears in no distress
[2021-06-29 09:26] VITALS: BP 140/73; PULSE 67; RESP 16; TEMP 36.8; O2SAT 100
[2021-06-29] MEDS: Lithium Carbonate 300 MG TABLET 150 MG PO (09:29)
[2021-06-29] MEDS: lamoTRIgine 25 MG TABLET 125 MG PO (09:29)
[2021-06-29] MEDS: FLUoxetine HCl 20 MG CAPSULE PO (09:29)
[2021-06-29] MEDS: Sennosides 8.6 MG TABLET PO (09:30)
[2021-06-29] MEDS: Docusate Sodium 100 MG CAPSULE PO (09:30)
[2021-06-29] MEDS: Multivitamin TABLET 1 TAB PO (09:30)
[2021-06-29] MEDS: Mirabegron 25 MG TAB.ER.24H PO (09:30)
[2021-06-29 16:06] VITALS: BP 107/64; PULSE 81; RESP 15; TEMP 36.2; O2SAT 100
--- NOTE | 2021-06-29 16:22 | MHC.CARE ---
Call from Conrado Oquendo ([phone]) Transitional care from [facility] looking for an update. Advised that patient is still boarding in the ED, no geriatric beds statewide search. [facility] is actively reviewing patient information, said they were interested. Call Conrado back during business hours for authorization or after hours call 24 hr line [phone] if placed.
[2021-06-29] MEDS: lamoTRIgine 25 MG TABLET 150 MG PO (21:02)
[2021-06-29] MEDS: Melatonin 3 MG TABLET 1.5 MG PO (21:03)
--- NOTE | 2021-06-30 | ECG_ITS ---
Test Reason : med clearance Blood Pressure : / mmHG Vent. Rate : 079 BPM Atrial Rate : 079 BPM P-R Int : 128 ms QRS Dur : 090 ms QT Int : 376 ms P-R-T Axes : 065 077 079 degrees QTc Int : 431 ms Normal sinus rhythm Normal ECG When compared with ECG of 24-AUG-2020 02:21, Nonspecific T wave abnormality no longer evident in Anterior leads Referred By: Rachael Dyer Electronically Signed By:HAROLDO ESCOBAR MD
[2021-06-30 02:19] VITALS: BP 124/63; PULSE 68; RESP 15; TEMP 36.3; O2SAT 96
--- NOTE | 2021-06-30 05:12 | PC.NURSE ---
Patient slept through the night, no distress observed/reported, behavior cooperative and non concerning. medication compliant, appetite good, elimination intact, patient disposition per [facility] is section 12 inpatient bed search, no update on bed search but [facility] is considering the admission, VSS, will continue to monitor
--- NOTE | 2021-06-30 07:07 | PC.NURSE ---
patient appears to remain asleep at present, respirations are even and unlabored, patient appears in no distress.
[2021-06-30] MEDS: Docusate Sodium 100 MG CAPSULE PO (08:27)
[2021-06-30] MEDS: Multivitamin TABLET 1 TAB PO (08:27)
[2021-06-30] MEDS: Lithium Carbonate 300 MG TABLET 150 MG PO (08:27)
[2021-06-30] MEDS: lamoTRIgine 25 MG TABLET 125 MG PO (08:27)
[2021-06-30] MEDS: Mirabegron 25 MG TAB.ER.24H PO (08:28)
[2021-06-30] MEDS: FLUoxetine HCl 20 MG CAPSULE 40 MG PO (08:28)
--- NOTE | 2021-06-30 16:15 | PC.NURSE ---
client declined CXR stated she wanted to rest
[2021-06-30 17:05] LABS: COVID-19 Test Negative (Negative)
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
--- NOTE | 2021-06-30 17:42 | MHC.CARE ---
CARE Team attempted to assist with Pt receiving X-ray, pt declined.
[2021-06-30] MEDS: Melatonin 3 MG TABLET 1.5 MG PO (20:47)
[2021-06-30] MEDS: lamoTRIgine 25 MG TABLET 150 MG PO (20:47)
--- NOTE | 2021-06-30 21:51 | PC.NURSE ---
Patient compliant with HS medication, per care team Patient need chest X-ray as a condition for admission at [facility]. Patient refused the for X-ray, we will approach later, will continue to monitor.
[2021-07-01 00:43] VITALS: BP 94/64; PULSE 73; RESP 16; TEMP 36.7; O2SAT 96
--- NOTE | 2021-07-01 02:01 | PC.NURSE ---
PT chest xray completed. PT in bed resting at this time, VS.
--- NOTE | 2021-07-01 08:18 | PC.NURSE ---
Pt ambulating with walker and supervision around the pod. Per report, is looking into patient. No further information at this time regarding any transfers. Pt calm and cooperative, requesting to speak with her brother on phone, phone call made per request. Pt in good spirits. Making needs known.
[2021-07-01] MEDS: Sennosides 8.6 MG TABLET PO (08:39)
[2021-07-01] MEDS: Docusate Sodium 100 MG CAPSULE PO (08:40)
[2021-07-01] MEDS: Multivitamin TABLET 1 TAB PO (08:40)
[2021-07-01] MEDS: Mirabegron 25 MG TAB.ER.24H PO (08:40)
[2021-07-01] MEDS: Lithium Carbonate 300 MG TABLET 150 MG PO (08:40)
[2021-07-01] MEDS: lamoTRIgine 25 MG TABLET 125 MG PO (08:40)
[2021-07-01] MEDS: FLUoxetine HCl 20 MG CAPSULE PO (08:41)
[2021-07-01 11:14] VITALS: BP 135/86; PULSE 82; RESP 16; TEMP 37.1; O2SAT 98
--- NOTE | 2021-07-01 13:57 | PC.NURSE ---
Report given to RN at Wing
== END 2021-07-01 15:00 ==
PROVIDERS: Nurse Practitioner Family; Physician Assistant; Registered Nurse; Emergency Provider Emergency Medicine Emergency Medical Services
DX: F33.3 Major depressive disorder, recurrent, severe with psychotic symptoms (principal); R45.851 Suicidal ideations; I10 Essential (primary) hypertension; F41.1 Generalized anxiety disorder; F43.0 Acute stress reaction; N39.0 Urinary tract infection, site not specified; Z20.822 Contact with and (suspected) exposure to COVID-19; Z63.8 Other specified problems related to primary support group; Z79.899 Other long term (current) drug therapy
CPT/HCPCS: 36415; 71045; 80053; 80178; 80307; 81001; 81003; 85025; 87086; 87635; 93005; 99285

== ENCOUNTER 2021-07-16 10:36 | Outpatient (REF) | payer MEDICARE, MEDICAID, SELFPAY ==
[2021-07-16 12:16] LABS: Lithium 0.17 mmol/L (0.60-1.20)
[2021-07-16 12:35] LABS: Anion Gap 11 (12-20); Blood Urea Nitrogen 22 mg/dL (9-16); Calcium 10.6 mg/dL (8.4-10.2); Carbon Dioxide 31 mmol/L (22-29); Chloride 106 mmol/L (96-108); Estimated Glomerular Filt Rate > 60; Glucose Random 77 mg/dL (60-115); Potassium 4.2 mmol/L (3.3-5.1); Sodium 144 mmol/L (135-145)
== END 2021-07-16 10:37 | disposition home or self-care (01) ==
LOC: HO.LAB 10:36
PROVIDERS: Visit Provider Clinical Nurse Specialist Psychiatric/Mental Health, Adult
DX: Z79.899 Other long term (current) drug therapy (principal)
CPT/HCPCS: 36415; 80048; 80178

== ENCOUNTER 2021-07-29 09:27 | Outpatient (REF) | payer MEDICARE, MEDICAID, SELFPAY ==
[2021-07-29 10:20] LABS: Lithium 0.44 mmol/L (0.60-1.20)
== END 2021-07-29 09:28 | disposition home or self-care (01) ==
LOC: HO.LAB 09:27
PROVIDERS: Visit Provider Clinical Nurse Specialist Psychiatric/Mental Health, Adult
DX: Z79.899 Other long term (current) drug therapy (principal)
CPT/HCPCS: 36415; 80178

== ENCOUNTER 2021-09-02 09:19 | Outpatient (REF) | payer MEDICARE, MEDICAID, SELFPAY ==
[2021-09-02 10:40] LABS: Lithium 0.33 mmol/L (0.60-1.20)
== END 2021-09-02 09:20 | disposition home or self-care (01) ==
LOC: HO.LAB 09:19
PROVIDERS: PCP Family Medicine; Visit Provider Clinical Nurse Specialist Psychiatric/Mental Health, Adult
DX: Z79.899 Other long term (current) drug therapy (principal)
CPT/HCPCS: 36415; 80178

== ENCOUNTER 2022-06-02 08:57 | Outpatient (REF) | payer MEDICARE, MEDICAID, SELFPAY ==
[2022-06-02 10:21] LABS: Lithium 0.44 mmol/L (0.60-1.20)
[2022-06-02 10:26] LABS: Anion Gap 10 (12-20); Blood Urea Nitrogen 22 mg/dL (9-16); Calcium 10.3 mg/dL (8.4-10.2); Carbon Dioxide 29 mmol/L (22-29); Chloride 110 mmol/L (96-108); Estimated Glomerular Filt Rate > 60; Glucose Random 95 mg/dL (60-115); Potassium 4.9 mmol/L (3.3-5.1); Sodium 144 mmol/L (135-145)
== END 2022-06-02 08:58 | disposition home or self-care (01) ==
LOC: HO.LAB 08:57
PROVIDERS: PCP Nurse Practitioner Family; Visit Provider Clinical Nurse Specialist Psychiatric/Mental Health, Adult
DX: Z79.899 Other long term (current) drug therapy (principal)
CPT/HCPCS: 36415; 80048; 80178

== ENCOUNTER 2023-06-03 08:08 | Emergency (ER) | payer MEDICARE, SELFPAY ==
--- NOTE | ~2023-06-03 | CT_ITS ---
EXAMINATION: CT FACIAL BONES WITHOUT CONTRAST CLINICAL INFORMATION: Trauma COMPARISON: None available. TECHNIQUE: Axial images through the facial bones without contrast. Sagittal and coronal reconstructions on the technologist's workstation. This CT examination was performed using dose optimization techniques as appropriate, variously including the following: *Automated exposure control *Adjustment of mA and/or kV according to patient size (this includes techniques or standardized protocols for targeted exams where dose is matched to indication/reason for exam; i.e. extremities or head) *Use of iterative reconstruction technique DLP: 212 mGy-cm FINDINGS: Nondisplaced left nasal bone fracture. No other fracture seen. Minimal soft tissue opacification of the right ethmoid sinus. Small osteoma in the left frontal sinus. Paranasal sinuses are otherwise clear. Mastoid air cells and middle ears are clear. Temporomandibular joints are normal. The orbits are normal. There is mild soft tissue swelling over the right frontal bone. CT/CT facial bones wo IV con IMPRESSION: Nondisplaced left nasal bone fracture. Mild soft tissue swelling over the right frontal bone.
--- NOTE | ~2023-06-03 | CT_ITS ---
EXAMINATION: CT CERVICAL SPINE WITHOUT CONTRAST CLINICAL INFORMATION: Trauma. Fall. COMPARISON: Previous cervical spine CT scans most recent September 2020. TECHNIQUE: Axial images through the cervical spine without contrast. Sagittal and coronal reconstructions on the technologist's workstation were performed. This CT examination was performed using dose optimization techniques as appropriate, variously including the following: *Automated exposure control *Adjustment of mA and/or kV according to patient size (this includes techniques or standardized protocols for targeted exams where dose is matched to indication/reason for exam; i.e. extremities or head) *Use of iterative reconstruction technique DLP: 186 mGy-cm FINDINGS: Curvature of the mid cervical spine to the right and lower cervical and upper thoracic spine to the left. 8 mm anterior subluxation of C5 with respect to C4 and C6. 3 mm anterior subluxation of T1 with respect to T2. This is similar to previous exams where it Postsurgical left-sided laminoplasty changes from C3 to C6. A screw at C5-C6 may have backed out slightly, coronal reconstructed image 14 series 8. Hardware otherwise appears intact and unchanged. There is multilevel degenerative spondylosis and degenerative disc disease. There are degenerative changes of the C1 dens articulation. There is bilateral facet arthritis. Prevertebral soft tissues are normal. Visualized lung apices are clear. There are bilateral small thyroid nodules. No imaging follow-up recommended CT/CT cervical spine wo IV con IMPRESSION: No acute fracture or dislocation. Postsurgical change from C3 to C6 laminoplasty on the left. A screw at C5-C6 may have backed out slightly compared to prior exams. Surgical hardware otherwise appears intact. Stable anterior subluxation of C5 with respect to C4 and C6 . Scoliosis. Severe multilevel degenerative spondylosis and degenerative disc disease. Fleischner guidelines were followed.
--- NOTE | ~2023-06-03 | CT_ITS ---
EXAMINATION: CT HEAD WITHOUT CONTRAST CLINICAL INFORMATION: Fall. Head trauma. COMPARISON: Previous head CT September 2020 TECHNIQUE: Contiguous axial imaging was performed from the skull base to vertex without intravenous administration of contrast. This CT examination was performed using dose optimization techniques as appropriate, variously including the following: *Automated exposure control *Adjustment of mA and/or kV according to patient size (this includes techniques or standardized protocols for targeted exams where dose is matched to indication/reason for exam; i.e. extremities or head) *Use of iterative reconstruction technique DLP: 559 mGy-cm FINDINGS: There is no evidence of an extra-axial collection. There is no evidence of intra-axial or extra-axial hemorrhage. The ventricles and extra-axial CSF spaces are prominent suggestive of mild generalized atrophy. There is is nonspecific periventricular white matter disease. No mass, mass effect or infarct. No skull fracture. There is soft tissue swelling over the right frontal bone CT/CT head/brain wo IV con IMPRESSION: No acute intracranial findings. Mild soft tissue swelling over the right frontal bone.
--- NOTE | 2023-06-03 08:21 | ECG_ITS ---
Test Reason : WEAKNESS, FALL Blood Pressure : / mmHG Vent. Rate : 071 BPM Atrial Rate : 071 BPM P-R Int : 134 ms QRS Dur : 094 ms QT Int : 390 ms P-R-T Axes : 054 067 054 degrees QTc Int : 423 ms Normal sinus rhythm Minimal voltage criteria for LVH, may be normal variant ( Sokolow-Mckay ) Borderline ECG When compared with ECG of 30-JUN-2021 15:49, Nonspecific T wave abnormality no longer evident in Lateral leads Referred By: Olga Galaviz Electronically Signed By:BARBRA BHATTI
[2023-06-03 08:32] VITALS: BP 134/86; BP 141/66; PULSE 72; RESP 18; TEMP 36.6; O2SAT 100; BMI 37.5
[2023-06-03 09:53] LABS: MANUAL DIFF FLAG NO
[2023-06-03 09:54] LABS: Basophils Absolute Auto 0.1 X10*3/uL (0.0-0.2); Basophils Percent Auto 1.1 % (0-2); Eosinophils Absolute Auto 0.1 X10*3/uL (0.0-0.4); Eosinophils Percent Auto 1.7 % (0-4); Hemoglobin 11.8 g/dl (12.0-16.0); Imm Gran Abs Auto 0.01 X10*3/uL (0.00-0.03); Imm Gran Pct Auto 0.2 % (0.0-0.4); Lymphocytes Percent Auto 20.8 % (20-40); Mean Corpuscular HGB Conc 31.9 g/dl (31.0-35.0); Mean Corpuscular Hemoglobin 32.2 pg (27.0-33.0); Mean Corpuscular Volume 100.8 fL (80.0-98.0); Mean Platelet Volume 9.2 fL (9.4-12.3); Monocytes Absolute Auto 0.4 X10*3/uL (0.1-1.2); Monocytes Percent Auto 9.2 % (2-11); Neutrophils Absolute Auto 3.2 x10*3/uL (2.0-8.3); Platelet Count 199 X10*3/uL (160-400); Red Blood Count 3.67 X10*6/uL (4.20-5.50); Red Cell Distribution Width 11.9 % (11.0-16.0); White Blood Count 4.8 X10*3/uL (4.8-10.8)
--- NOTE | 2023-06-03 09:58 | ED_ITS ---
HPI - Fall General Chief Complaint: Fall Stated Complaint: FALL + HEAD STRIKE Time Seen by Provider: 06/03/23 08:16 Source: patient and EMS Mode of arrival: EMS History of Present Illness HPI Narrative: Patient is a 72-year-old female who presents to the emergency department via EMS coming from [facility]. Patient had an unwitnessed fall today, staff had heard the patient yelling out for help upon presenting to the room she was noted to be on the ground. She had reported to staff that she was trying to get out of bed, to me she is unable to tell me why she fell or tell me the circumstances surrounding her fall. Per staff report she has recently been getting up more frequently without the use of her walker. She is not in any anticoagulants. When asked she states that she is having pain to her lip and there is a superficial laceration to the midline of the lower lip with no active bleeding. She also states she is having some pain to her nose, there appears to be localized swelling over the nasal bridge. She is moving upper and lower extremities without difficulty, denies pain. Related Data Home Medications Medication Instructions Recorded Confirmed lamotrigine 150 mg tablet 150 mg PO BEDTIME 06/24/21 06/24/21 lamotrigine 25 mg tablet 125 tab PO QAM 06/24/21 06/24/21 lithium carbonate 150 mg capsule 150 mg PO QAM 06/24/21 06/24/21 melatonin 1 mg tablet 1 mg PO BEDTIME 06/24/21 06/24/21 sennosides 8.6 mg tablet (senna) 8.6 mg PO Q OTHER DAY 06/24/21 06/24/21 Previous Rx's Medication Instructions Recorded acetaminophen 325 mg tablet 650 mg (2 x 325 mg) PO Q6H PRN 09/13/20 pain #240 tabs fluoxetine 20 mg capsule 20 mg PO Q2D #30 caps 09/13/20 fluoxetine 40 mg capsule 40 mg PO Q2D #30 caps 09/13/20 multivitamin 1 tab PO DAILY 90 days #90 tabs 09/13/20 mirabegron 25 mg tablet,extended 25 mg PO DAILY #28 tabs 05/14/21 release 24 hr (Myrbetriq) docusate sodium 100 mg capsule 100 mg PO DAILY #28 caps 09/14/21 Allergies Allergy/AdvReac Type Severity Reaction Status Date / Time clarithromycin Allergy Severe ANAPHYLAXIS Verified 06/24/21 16:24 Penicillins Allergy Mild RASH Verified 06/24/21 16:24 penicillin V Allergy Unknown rash Verified 06/24/21 16:24 aspirin AdvReac Mild UPSET Verified 06/24/21 16:24 STOMACH Biaxin Allergy Unknown rash Uncoded 07/03/19 00:00 Review of Systems 2 Review of Systems: Yes all other systems are reviewed and are negative [facility] Past Medical History Attestation statement: The following information was validated with the patient. Source: old records reviewed Medical History Depression Cerebral palsy Surgical History History of D&C History of suicide attempt Family History Family History Father CVA (cerebral vascular accident) Aneurysm Mother Hypertension Hyperlipidemia Brother Throat cancer Social History Social History Alcohol intake: unknown Advance Directives: No Advance Directives Information Provided: No Physical Exam 2 Vital Signs: Vital Signs: Last Vital Signs Temp 97.8 F 06/03/23 08:32 Pulse 72 06/03/23 08:32 Resp 18 06/03/23 08:32 BP 141/66 H 06/03/23 08:32 Pulse Ox 100 06/03/23 08:32 O2 Del Method Room Air 06/03/23 08:32 BMI result Body Mass Index 37.5 Appearance: Alert.?Oriented to person No acute distress.?Normal affect. Head: Normocephalic, atraumatic Eyes: Pupils equal, round and reactive to light.? EOMI. ENT: Pharynx normal.??0.5 cm linear laceration to the mid lower lip without active bleeding dentition normal. No septal hematoma. Localized swelling over the nasal bridge and tenderness upon palpation Neck: Normal inspection.? Neck supple.??No midline cervical spine tenderness, step-offs, deformities. CVS: Heart sounds normal. Normal heart rate and rhythm.? Pulses normal.?? Respiratory: No respiratory distress.? Lung sounds clear to auscultation bilaterally?? Abdomen: Soft and non-tender. Normoactive bowel sounds. Skin: Skin warm and dry.? Normal skin color.? ? Extremities: No lower extremity edema.? Neuro: Moves all extremities spontaneously. Sensation intact bilaterally. CN II- XII intact. No focal neuro deficits. Course Reevaluation(s) Reevaluation #1: CT of the head is without acute intracranial pathology. CT of the cervical spine is without acute fracture or dislocation, surgical hardware intact with stable anterior subluxation of C5, there is however mention of possible screw loosening. I reviewed this case with ED attending Dr. Eldridge, patient is without any neurological deficits, at this time recommended that she have outpatient follow-up with spinal surgeon. CT of the facial bones reveals a nondisplaced left nasal bone fracture, she will require outpatient follow-up with ENT. Urinalysis is without any evidence of infection. Time: 10:47 Reevaluation #2: Patient was able to ambulate with the use of a walker. Family is present at bedside, they confirmed that her gait is at baseline. She has a more suitably adapted walker at her assisted living facility due to her cerebral palsy. They feel confident that she can return back. Time: 13:05 Medical Decision Making Medical Decision Making [facility] Narrative: Patient is a 72-year-old female with past medical history of depression, hypertension, epilepsy, hypothyroidism, cerebral palsy, prior subluxation of C5- C6 presenting to emergency department for evaluation after an unwitnessed fall. Patient is unable to provide me the details surrounding the fall, per staff she had reported to them trying to get out of bed. It is unclear whether there was any loss of consciousness. She has no focal neurological deficits upon examination, will obtain CT of the head, facial bones, and cervical spine to evaluate for ICH, fracture, subluxation. In addition Will obtain CBC to evaluate for leukocytosis/ anemia, BMP to evaluate for abnormal electrolytes /abnormal renal function/ abnormal hepatic/biliary function, EKG to evaluate for arrhythmia, and Urinalysis. Laceration to her lip is superficial, would not be amenable to repair with suture. Differential Diagnosis Differential Diagnoses: The differential diagnosis associated with the presentation includes (Mechanical fall, syncope, ACS, seizure) Admission/Observation Consideration of admission/observation: Escalation of care including admission/observation considered (See narrative above and course narrative for further detail) Lab Data [facility] Lab Attestation statement: I reviewed the patient's lab results. CBC is without leukocytosis, mild anemia without active bleeding does not meet transfusion criteria. CMP revealing elevated BUN, likely secondary to mild dehydration with lack of sufficient fluid intake. 06/03/23 09:49 06/03/23 09:49 Labs: Lab Results 06/03/23 06/03/23 Range/Units 09:49 11:26 WBC 4.8 (4.8-10.8) X10*3/uL RBC 3.67 L (4.20-5.50) X10*6/uL Hgb 11.8 L (12.0-16.0) g/dl Hct 37.0 (37.0-47.0) % MCV 100.8 H (80.0-98.0) fL MCH 32.2 (27.0-33.0) pg MCHC 31.9 (31.0-35.0) g/dl RDW 11.9 (11.0-16.0) % Plt Count 199 (160-400) X10*3/uL MPV 9.2 L (9.4-12.3) fL Immature Gran % (Auto) 0.2 (0.0-0.4) % Neut % (Auto) 67.0 (45-73) % Lymph % (Auto) 20.8 (20-40) % Carbon % (Auto) 9.2 (2-11) % Eos % (Auto) 1.7 (0-4) % Baso % (Auto) 1.1 (0-2) % Lymph # (Auto) 1.0 L (1.2-4.9) X10*3/uL Carbon # (Auto) 0.4 (0.1-1.2) X10*3/uL Eos # (Auto) 0.1 (0.0-0.4) X10*3/uL Baso # (Auto) 0.1 (0.0-0.2) X10*3/uL Abs Immat Gran (auto) 0.01 (0.00-0.03) X10*3/uL Absolute Neuts (auto) 3.2 (2.0-8.3) x10*3/uL Absolute Nucleated RBC 0.000 (0.0-0.012) X10*3/uL Nucleated RBC % (auto) 0.0 (0.0-0.2) /100WBC PT 11.2 (11.1-13.3) SEC INR 0.9 (0.9-1.1) Sodium 143 (135-145) mmol/L Potassium 4.9 (3.3-5.1) mmol/L Chloride 109 H (96-108) mmol/L Carbon Dioxide 28 (22-29) mmol/L Anion Gap 11 L (12-20) BUN 20 H (9-16) mg/dL Creatinine 0.80 (0.5-1.4) mg/dL Estim Creat Clear Calc 62.4 Estimated GFR > 60 Random Glucose 97 (60-115) mg/dL Calcium 10.3 H (8.4-10.2) mg/dL Total Bilirubin 0.4 (0.0-1.0) mg/dL AST 20 (5-31) U/L ALT 16 (0-31) U/L Alkaline Phosphatase 71 (39-117) U/L Total Protein 6.5 (6.5-8.0) g/dL Albumin 3.9 (3.5-5.0) g/dL Urine Color Yellow Urine Appearance Clear Urine pH 7.0 (5.0-9.0) Ur Specific [place] 1.010 (1.005-1.025) Urine Protein Negative (Neg-Trace) mg/dL Urine Glucose (UA) Negative (Negative) mg/dL Urine Ketones Negative (Negative) mg/dL Urine Blood Negative (Negative) Urine Nitrite Negative (Negative) Ur Leukocyte Esterase Small (1+) H (Negative) Urine RBC 0-2 (0-2) /HPF Urine WBC 0-5 (0-5) /HPF Ur Squamous Epith Cells 0-2 (0-2) /HPF Urine Bacteria None Seen (None Seen) Hyaline Casts 0-2 (0-2) /LPF Independent Interpretation I performed an independent interpretation of an: EKG and CT Scan Interpretation: Rate: 71 Rhythm:? Normal sinus rhythm Normal P waves.? Normal NATALY.?? Normal QRS complex.?? ST T wave :??No ST elevation, no ST depression, no T-wave inversion qTC:[id number] The study has been interpreted contemporaneously by me. Radiology Impression Discussion of test interpretation with radiology: I have reviewed the radiologist's reading. Radiologist Impression: CT/CT head/brain wo IV con IMPRESSION: No acute intracranial findings. Mild soft tissue swelling over the right frontal bone. CT/CT cervical spine wo IV con IMPRESSION: No acute fracture or dislocation. Postsurgical change from C3 to C6 laminoplasty on the left. A screw at C5-C6 may have backed out slightly compared to prior exams. Surgical hardware otherwise appears intact. Stable anterior subluxation of C5 with respect to C4 and C6 . Scoliosis. Severe multilevel degenerative spondylosis and degenerative disc disease. CT/CT facial bones wo IV con IMPRESSION: Nondisplaced left nasal bone fracture. Mild soft tissue swelling over the right frontal bone. Independent Historian Clinical information obtained from an independent historian. History obtained from or confirmed by: EMS External Record Review External record reviewed: Outpatient record Discharge Plan Discharge Clinical Impression: Fall Qualifiers: Encounter type: initial encounter Qualified Code(s): W19.XXXA - Unspecified fall, initial encounter Fracture of nasal bone Qualifiers: Encounter type: initial encounter Fracture type: closed Qualified Code(s): S 02.2XXA - Fracture of nasal bones, initial encounter for closed fracture Patient Disposition: Home, Self-Care Additional Instructions: CT Scan indicates possible loosening of 1 of the screws in the hardware of the neck, the hardware however appears to be in place without any movement. Please contact your spinal surgeon to arrange for an outpatient follow-up. CT scan today indicates a fracture to the nasal bone, apply ice to the nose for 10-15 minutes 3-4 times daily. Contact the ENT specialist Monday to arrange for a follow-up visit. Prescriptions: No Action multivitamin Tablet 1 tab PO DAILY 90 Days Qty: 90 4RF Rx Instructions: May split for easier swallowing fluoxetine 40 mg capsule 40 mg PO Q2D Qty: 30 2RF fluoxetine 20 mg capsule 20 mg PO Q2D Qty: 30 2RF acetaminophen 325 mg tablet 650 mg PO Q6H PRN (Reason: pain) Qty: 240 1RF Myrbetriq 25 mg tablet extended release 24 hr 25 mg PO DAILY Qty: 28 3RF docusate sodium 100 mg capsule 100 mg PO DAILY Qty: 28 3RF lamotrigine 150 mg tablet 150 mg PO BEDTIME lamotrigine 25 mg tablet 125 tab PO QAM lithium carbonate 150 mg capsule 150 mg PO QAM sennosides [senna] 8.6 mg tablet 8.6 mg PO Q OTHER DAY melatonin 1 mg tablet 1 mg PO BEDTIME Referrals: Sebastian Sanchez MD [Primary Care Provider] - Justin Strange [Physician] -
[2023-06-03 10:05] LABS: INTERNATIONAL NORM RATIO 0.9 (0.9-1.1); Prothrombin Time 11.2 SEC (11.1-13.3)
[2023-06-03 10:07] LABS: Alanine Aminotransferase 16 U/L (0-31); Albumin Level 3.9 g/dL (3.5-5.0); Alkaline Phosphatase 71 U/L (39-117); Anion Gap 11 (12-20); Aspartate Amino Transferase 20 U/L (5-31); Bilirubin Total 0.4 mg/dL (0.0-1.0); Blood Urea Nitrogen 20 mg/dL (9-16); Calcium 10.3 mg/dL (8.4-10.2); Carbon Dioxide 28 mmol/L (22-29); Chloride 109 mmol/L (96-108); Creatinine Clr Calc Pharmacy 62.4; Estimated Glomerular Filt Rate > 60; Glucose Random 97 mg/dL (60-115); Potassium 4.9 mmol/L (3.3-5.1); Sodium 143 mmol/L (135-145); Total Protein 6.5 g/dL (6.5-8.0)
--- NOTE | 2023-06-03 10:23 | MHC.EDTECH ---
pt family refusing swabs at this time- says she fell on her nose, why would you stick a swab where she fell? . RN aware
[2023-06-03 11:32] LABS: Appearance Urine Clear; Color Urine Yellow; Glucose Urine UA Negative (Negative); Leukocyte Esterase Urine Small (1+) (Negative); Nitrite Urine Negative (Negative); UMIC TRIGGER UACC YES; Urine Blood Negative (Negative); Urine Ketones Negative (Negative); Urine Protein Negative (Neg-Trace)
[2023-06-03 11:39] LABS: Bacteria Urine None Seen (None Seen); Hyaline Casts Urine 0-2 /LPF (0-2); RBC Urine 0-2 /HPF (0-2); Squamous Epithelial Cell Urine 0-2 /HPF (0-2); UACC Culture Trigger YES; WBC Urine 0-5 /HPF (0-5)
--- NOTE | 2023-06-03 13:40 | PC.NURSE ---
ambulation trial with walker successful, brother at bedside stating that she has walker at home specific for her unsteady gait that she uses. was able to ambulate with this RN.
[2023-06-03 14:01] VITALS: BP 133/76; PULSE 69; RESP 14; TEMP 36.8; O2SAT 100
== END 2023-06-03 14:08 | disposition home or self-care (01) ==
PROVIDERS: Nurse Practitioner Family; Emergency Provider Emergency Medicine Emergency Medical Services; PCP Nurse Practitioner Gerontology
DX: S02.2XXA Fracture of nasal bones, initial encounter for closed fracture (principal); S01.511A Laceration without foreign body of lip, initial encounter; W06.XXXA Fall from bed, initial encounter; Z91.81 History of falling; Y93.9 Activity, unspecified; Y92.9 Unspecified place or not applicable; Y99.9 Unspecified external cause status; G80.9 Cerebral palsy, unspecified; I10 Essential (primary) hypertension; G40.909 Epilepsy, unspecified, not intractable, without status epilepticus; E03.9 Hypothyroidism, unspecified
CPT/HCPCS: 36415; 70450; 70486; 72125; 80053; 81001; 85025; 85610; 87086; 93005; 99285

== ENCOUNTER → 2023-06-03 08:21 | Outpatient (BNV) | payer MEDICARE, MEDICAID, SELFPAY | PROVIDERS: Emergency Provider Emergency Medicine Emergency Medical Services; PCP Family Medicine; Visit Provider Internal Medicine | DX: S09.90XA Unspecified injury of head, initial encounter (principal); W19.XXXA Unspecified fall, initial encounter | CPT/HCPCS: 93010 ==

== ENCOUNTER 2023-06-27 09:48 | Outpatient (REF) | payer MEDICARE, SELFPAY ==
[2023-06-27 12:04] LABS: Lithium 0.39 mmol/L (0.60-1.20)
[2023-06-27 12:26] LABS: Anion Gap 14 (12-20); Blood Urea Nitrogen 20 mg/dL (9-16); Calcium 10.3 mg/dL (8.4-10.2); Carbon Dioxide 28 mmol/L (22-29); Chloride 106 mmol/L (96-108); Estimated Glomerular Filt Rate > 60; Glucose Random 88 mg/dL (60-115); Potassium 4.7 mmol/L (3.3-5.1); Sodium 143 mmol/L (135-145)
== END 2023-06-27 09:49 | disposition home or self-care (01) ==
LOC: HO.LAB 09:48
PROVIDERS: Visit Provider Clinical Nurse Specialist Psychiatric/Mental Health, Adult
DX: Z79.899 Other long term (current) drug therapy (principal)
CPT/HCPCS: 36415; 80048; 80178; 84443

== ENCOUNTER 2023-12-09 10:11 | Emergency (ER) | payer MEDICARE, SELFPAY ==
--- NOTE | ~2023-12-09 | XR_ITS ---
EXAMINATION: XR HAND, LEFT CLINICAL INFORMATION: Left hand pain and bruising. Fall. COMPARISON: Left hand radiographs dated 01/25/2020. TECHNIQUE: PA, lateral, and oblique views of the left hand. FINDINGS: No acute fracture or dislocation. Postsurgical change consistent with joint fusion at the second proximal and distal interphalangeal joints. No evidence of hardware complication. Healed osteotomy across the fourth proximal phalanx. Severe joint space narrowing with ulnar subluxation of the metacarpophalangeal joints. Associated periarticular erosions. Findings are increased in prominence when compared to the prior examination. Severe joint space narrowing with bony remodeling and marginal osteophytes at the triscaphe and first and second carpal metacarpal joints, slightly progressed when compared to the prior examination. Prominent dorsal and ulnar soft tissue swelling. No radiopaque foreign body. XR/XR hand LT min 3V IMPRESSION: 1. Prominent dorsal and ulnar soft tissue swelling without radiopaque foreign body. 2. No acute fracture or dislocation. 3. Postsurgical change consistent with joint fusion at the second proximal and distal interphalangeal joints without evidence of hardware complication. 4. Joint space narrowing with periarticular erosions and ulnar subluxations at the metacarpophalangeal joints, progressed when compared to the prior examination and likely representing rheumatoid arthritis.
--- NOTE | ~2023-12-09 | CT_ITS ---
EXAMINATION: CT HEAD WITHOUT CONTRAST CLINICAL INFORMATION: Fall with head strike COMPARISON: CT head from 06/03/2023 TECHNIQUE: Contiguous axial imaging was performed from the skull base to vertex without intravenous administration of contrast. This CT examination was performed using dose optimization techniques as appropriate, variously including the following: *Automated exposure control *Adjustment of mA and/or kV according to patient size (this includes techniques or standardized protocols for targeted exams where dose is matched to indication/reason for exam; i.e. extremities or head) *Use of iterative reconstruction technique DLP: 608.31 mGy-cm FINDINGS: There is no evidence of acute intracranial hemorrhage or territorial infarction. Chronic white matter small vessel ischemic changes. Cerebral atrophy with commensurate ventricular changes. No abnormal mass effect or midline shift is seen. Magdaleno to white matter differentiation is well preserved. No extra-axial fluid collections are identified. There is no abnormal attenuation within the brain parenchyma. Slight soft tissue prominence overlying the right frontal bone without underlying bony defect identified. The osseous structures and soft tissues are normal. The mastoid air cells and visualized portions of the paranasal sinuses are well aerated. CT/CT cervical spine wo IV con IMPRESSION: 1. No acute intracranial pathology. 2. Slight soft tissue prominence overlying the right frontal bone without underlying bony defect identified. 3. Chronic white matter small vessel ischemic changes. EXAMINATION: Noncontrast CT scan of the cervical spine. INDICATION: Fall head strike COMPARISON: CT cervical spine from 06/03/2023 TECHNIQUE: Helical, multidetector axial images were obtained from the occiput to the upper thorax. Coronal and sagittal reformats of the cervical spine were provided for interpretation. DLP: 228.7 mGy-cm FINDINGS: No acute fractures or dislocations of the cervical spine are seen. Postsurgical changes status post C3-C6 laminoplasty on the left, grossly intact. Grade 1-2 anterolisthesis of C5 on C6 and grade 1 anterolisthesis of T1 on T2. Dextrocurvature of the midthoracic spine. Multilevel degenerative changes. Anatomic alignment and positioning of the vertebral bodies and posterior elements is noted. The atlantoaxial joint and craniovertebral articulations are normal without evidence of subluxation. There is no prevertebral soft tissue swelling. The thyroid gland and visualized portions of the lung apices and mediastinum are unremarkable. IMPRESSION: 1. No acute fracture or dislocation. 2. Postsurgical changes status post C3-C6 laminoplasty on the left, grossly intact. 3. Grade 1-2 anterolisthesis of C5 on C6 and grade 1 anterolisthesis of T1 on T2. 4. Dextrocurvature of the midthoracic spine. 5. Multilevel degenerative changes.
[2023-12-09 10:18] VITALS: BP 128/78; PULSE 80; O2SAT 96
[2023-12-09 10:23] VITALS: BP 112/75; PULSE 79; RESP 16; TEMP 36.4; O2SAT 97; BMI 19.1
[2023-12-09 10:58] LABS: MANUAL DIFF FLAG NO
[2023-12-09 11:05] LABS: Basophils Absolute Auto 0.1 X10*3/uL (0.0-0.2); Basophils Percent Auto 0.9 % (0-2); Eosinophils Absolute Auto 0.1 X10*3/uL (0.0-0.4); Eosinophils Percent Auto 1.2 % (0-4); Hematocrit 37.6 % (37.0-47.0); Hemoglobin 12.2 g/dl (12.0-16.0); Imm Gran Abs Auto 0.01 X10*3/uL (0.00-0.03); Imm Gran Pct Auto 0.2 % (0.0-0.4); Lymphocytes Percent Auto 16.8 % (20-40); Mean Corpuscular HGB Conc 32.4 g/dl (31.0-35.0); Mean Corpuscular Hemoglobin 32.4 pg (27.0-33.0); Mean Platelet Volume 9.4 fL (9.4-12.3); Monocytes Absolute Auto 0.5 X10*3/uL (0.1-1.2); Monocytes Percent Auto 8.8 % (2-11); Neutrophils Absolute Auto 4.2 x10*3/uL (2.0-8.3); Neutrophils Percent Auto 72.1 % (45-73); Platelet Count 198 X10*3/uL (160-400); Red Blood Count 3.76 X10*6/uL (4.20-5.50); Red Cell Distribution Width 11.7 % (11.0-16.0); White Blood Count 5.8 X10*3/uL (4.8-10.8)
[2023-12-09 11:06] LABS: Prothrombin Time 11.6 SEC (11.1-13.3)
[2023-12-09 11:18] LABS: Alanine Aminotransferase 15 U/L (0-31); Albumin Level 3.8 g/dL (3.5-5.0); Alkaline Phosphatase 74 U/L (39-117); Anion Gap 9 (12-20); Aspartate Amino Transferase 16 U/L (5-31); Bilirubin Total 0.3 mg/dL (0.0-1.0); Blood Urea Nitrogen 18 mg/dL (9-16); Calcium 10.3 mg/dL (8.4-10.2); Carbon Dioxide 29 mmol/L (22-29); Chloride 109 mmol/L (96-108); Creatinine Clr Calc Pharmacy 41.8; Estimated Glomerular Filt Rate > 60; Glucose Random 87 mg/dL (60-115); Potassium 4.2 mmol/L (3.3-5.1); Sodium 143 mmol/L (135-145); Total Protein 6.2 g/dL (6.5-8.0)
[2023-12-09 11:26] LABS: Troponin-I High Sensitivity < 2.7 ng/L (<3.5-17.0)
[2023-12-09 12:25] VITALS: BP 133/74; PULSE 70; RESP 16; TEMP 36.6; O2SAT 98
[2023-12-09 12:39] LABS: Appearance Urine Clear; Color Urine Yellow; Glucose Urine UA Negative (Negative); Leukocyte Esterase Urine Negative (Negative); Nitrite Urine Negative (Negative); PH 7.5 (5.0-9.0); Urine Blood Negative (Negative); Urine Ketones Negative (Negative); Urine Protein Negative (Neg-Trace)
--- NOTE | 2023-12-09 13:41 | ED_ITS ---
HPI - General Adult General Chief complaint: Fall Stated complaint: fall w/ head strike , swollen L hand Time Seen by Provider: 12/09/23 13:40 Source: patient, EMS and old records reviewed Mode of arrival: EMS Limitations: other (confusion) History of Present Illness ED Provider: Jennie Oliver PA-C HPI narrative: 73-year-old female with history of cerebral palsy, frequent falls was brought in by ambulance from [facility] for evaluation after falling yesterday around noon. Per EMS, her [employer] noticed bruising around her left eye and swelling/bruising of her left wrist, and increased confusion. History limited by patient's baseline confusion. Patient responds yes when asked if she has pain in her left wrist, left eye, and left side of her forehead (the areas where she has bruising). Per EMS +headstrike when she fell, she is not on blood thinners, patient declined c-collar. Family prefers minimal hospital intervention. MD complaint: Fall Onset (ago): day(s) (1) Location: head (left forehead bruising), eyes (left eyelid bruising) and upper extremity (left wrist and hand swelling and bruising) Associated symptoms: confusion Related Data Home Medications ?Medication ?Instructions ?Recorded ?Confirmed lamotrigine 150 mg tablet 150 mg PO BEDTIME 06/24/21 06/24/21 lamotrigine 25 mg tablet 125 tab PO QAM 06/24/21 06/24/21 lithium carbonate 150 mg capsule 150 mg PO QAM 06/24/21 06/24/21 melatonin 1 mg tablet 1 mg PO BEDTIME 06/24/21 06/24/21 sennosides 8.6 mg tablet (senna) 8.6 mg PO Q OTHER DAY 06/24/21 06/24/21 Previous Rx's ?Medication ?Instructions ?Recorded acetaminophen 325 mg tablet 650 mg (2 x 325 mg) PO Q6H PRN 09/13/20 pain #240 tabs fluoxetine 20 mg capsule 20 mg PO Q2D #30 caps 09/13/20 fluoxetine 40 mg capsule 40 mg PO Q2D #30 caps 09/13/20 multivitamin 1 tab PO DAILY 90 days #90 tabs 09/13/20 mirabegron 25 mg tablet,extended 25 mg PO DAILY #28 tabs 05/14/21 release 24 hr (Myrbetriq) docusate sodium 100 mg capsule 100 mg PO DAILY #28 caps 09/14/21 Allergies Allergy/AdvReac Type Severity Reaction Status Date / Time clarithromycin Allergy Severe ANAPHYLAXIS Verified 12/09/23 10:34 Penicillins Allergy Mild RASH Verified 12/09/23 10:34 penicillin V Allergy Unknown rash Verified 12/09/23 10:34 aspirin AdvReac Mild UPSET Verified 12/09/23 10:34 STOMACH Biaxin Allergy Unknown rash Uncoded 07/03/19 00:00 Review of Systems 2 Review of Systems: Yes Other (patient has baseline confusion) Constitutional: Constitutional: Reports no additional constitutional complaints, Denies chills, Denies fever(s), Reports headache(s) and Denies night sweats Eyes: Eyes: Reports no additional eye complaints, Denies blurry vision, Denies change in vision, Denies diplopia, Denies eye discharge, Denies loss of vision and Denies eye pain ENT: Reports Normal hearing present and Reports headache(s) Cardiovascular: Cardiovascular: Reports no additional cardiovascular complaints, Denies chest pain, Denies lightheadedness, Denies Loss of Consciousness and Denies dyspnea Respiratory: Respiratory: Reports no additional respiratory complaints and Denies dyspnea Gastrointestinal: Gastrointestinal: Reports no additional gastrointestinal complaints, Denies abdominal pain, Denies melena, Denies hematochezia, Denies change in bowel habits and Denies change in stool character Genitourinary: Genitourinary: Denies hematuria, Denies urinary frequency, Denies dysuria, Denies urinary incontinence, Denies urinary hesitancy and Denies urinary urgency Musculoskeletal: Musculoskeletal: Reports no additional musculoskeletal complaints, Denies numbness and Denies tingling Comments: left hand/wrist pain Neurologic: Reports Normal hearing present, Reports confusion (baseline for the patient), Reports headache(s), Denies loss of vision, Denies numbness and Denies tingling Psychiatric: Psychiatric: Reports confusion (baseline for the patient) Endocrine: Endocrine: Reports no additional endocrine complaints Hematologic/Lymphatic: Hematologic/Lymphatic: Reports no additional hematologic/lymphatic complaints Allergic/Immunologic: Allergic/Immunologic: Reports no additional allergic/immunologic complaints PMFSH Past Medical History Attestation statement: The following information was validated with the patient. Source: old records reviewed and nursing notes reviewed Medical History Depression Cerebral palsy Surgical History History of D&C History of suicide attempt Family History Family History Father CVA (cerebral vascular accident) Aneurysm Mother Hypertension Hyperlipidemia Brother Throat cancer Social History Social History Alcohol intake: unknown Advance Directives: Yes Advance Directives on File: Yes Advance Directives Date on File: 12/09/23 Do you have a plan to hurt others: No Plan Physical Exam ED Vital Signs: Vital Signs - 24 hr 12/09/23 10:23 12/09/23 12:25 12/09/23 15:51 Temperature 97.6 F 97.9 F 97.9 F Pulse Rate 79 70 78 Respiratory Rate 16 16 15 Blood Pressure 112/75 133/74 142/89 H Pulse Oximetry 97 98 99 Oxygen Delivery Method Room Air Room Air Room Air BMI result Body Mass Index 19.1 Const General: cooperative, no acute distress, alert, awake and confusion (baseline for the patient) Nutritional Appearance: well nourished Orientation/consciousness: confusion (baseline for the patient) Limitations: altered mental status (increased confusion) [facility] Head: Yes normocephalic, No atraumatic and Yes contusion (Left side of forehead) Ears: hearing grossly normal bilaterally and external ears normal General nose exam: Abnormal external nose present (mild over bridge of nose ) nasal ecchymosis, no nasal discharge noted and no epistaxis Face and sinus: No abrasion, No crepitus, Yes ecchymosis (Left upper eyelid ecchymosis) and No laceration Mouth: Normal oral and palatal mucosa present, no drooling and no muffled voice Eyes General: appearance normal, both eyes and all related structures Periorbital: periorbital findings normal Eyelids: Yes eyelid abnormality (Left upper eyelid ecchymosis, right normal) Conjunctivae: conjunctivae normal Pupils: Equal, round and reactive pupils present EOM: EOMs intact bilaterally Neck Neck: Yes normal visual inspection, Yes full ROM and Yes no lymphadenopathy Chest Chest palpation & inspection: normal inspection of the chest Resp Effort & Inspection: normal respiratory effort and able to speak in complete sentences Auscultation: clear to auscultation bilaterally Cardio Rate: regular rate Rhythm: regular rhythm GI Inspection: Yes normal to inspection Neuro General: moves all extremities and confusion (baseline for the patient) Cranial nerves: Yes Equal, round and reactive pupils present, Yes Bilaterally intact EOM present and Yes Normal hearing present Cognition (Neuro): normal cognition Motor exam (neuro): 5/5 motor strength present throughout Sensory Exam: Normal double simultaneous stimulation for sensation Coordination: [id number] test normal Extrem General: Yes normal to inspection, Yes full ROM and Yes capillary refill normal Psych Appearance: grossly normal Mental Status: mental status grossly normal Affect: normal affect Attitude: cooperative Thought process: Normal thought process present Thought content: Normal thought content present Insight: Good insight present (Psych) Procedures Orthopedic Splinting/Casting Injury #1: Side: left Upper Extremity Injury Location: wrist and hand Upper Extremity Immobilizer: Lopez wrap (pressure dressing for hematoma) Medical Decision Making Medical Decision Making [facility] Narrative: Patient is a 73 year old assigned female at with a history of cerebral palsy, frequent falls, and mild confusion presenting to the emergency department today with left head pain, left hand/wrist pain, and increased confusion post fall. Patient's physical exam was as noted in the physical exam portion of this note. Patient's blood work was unremarkable. Patient's urine showed no acute process. Patient's left hand x-ray showed no acute process. Patient's head and c-spine CTs showed no acute process. I explained my physical exam findings as well as all test results to the patient. I answered all questions asked by the patient. Patient's left hand/wrist was wrapped with an LOPEZ wrap as a means of a pressure dressing to help with the patient's hematoma. Patient's PMS was intact prior to and after pressure dressing application. Given the patient lives in assisted living, I am concerned they will not accept her back with her increased confusion. Case management consult placed. Differential Diagnosis Differential Diagnoses: The differential diagnosis associated with the presentation includes intracranial hemorrhage basilar skull fracture frontal bone fracture concussion wrist fracture wrist contusion forehead contusion UTI Admission/Observation Consideration of admission/observation: Escalation of care including admission/observation considered Patient would have been admitted to the hospital had her work up had any findings where hospital admission was appropriate and herclinical presentation warranted hospital admission. Lab Data [facility] Lab Attestation statement: I reviewed the patient's lab results. My interpretation of these results are in the MDM Rationale portion of this note. 12/09/23 10:53 12/09/23 10:53 Labs: Lab Results 12/09/23 12/09/23 Range/Units 10:53 12:29 WBC 5.8 (4.8-10.8) X10*3/uL RBC 3.76 L (4.20-5.50) X10*6/uL Hgb 12.2 (12.0-16.0) g/dl Hct 37.6 (37.0-47.0) % MCV 100.0 H (80.0-98.0) fL MCH 32.4 (27.0-33.0) pg MCHC 32.4 (31.0-35.0) g/dl RDW 11.7 (11.0-16.0) % Plt Count 198 (160-400) X10*3/uL MPV 9.4 (9.4-12.3) fL Immature Gran % (Auto) 0.2 (0.0-0.4) % Neut % (Auto) 72.1 (45-73) % Lymph % (Auto) 16.8 L (20-40) % [place] % (Auto) 8.8 (2-11) % Eos % (Auto) 1.2 (0-4) % Baso % (Auto) 0.9 (0-2) % Lymph # (Auto) 1.0 L (1.2-4.9) X10*3/uL [place] # (Auto) 0.5 (0.1-1.2) X10*3/uL Eos # (Auto) 0.1 (0.0-0.4) X10*3/uL Baso # (Auto) 0.1 (0.0-0.2) X10*3/uL Abs Immat Gran (auto) 0.01 (0.00-0.03) X10*3/uL Absolute Neuts (auto) 4.2 (2.0-8.3) x10*3/uL Absolute Nucleated RBC 0.000 (0.0-0.012) X10*3/uL Nucleated RBC % (auto) 0.0 (0.0-0.2) /100WBC PT 11.6 (11.1-13.3) SEC INR 1.0 (0.9-1.1) Sodium 143 (135-145) mmol/L Potassium 4.2 (3.3-5.1) mmol/L Chloride 109 H (96-108) mmol/L Carbon Dioxide 29 (22-29) mmol/L Anion Gap 9 L (12-20) BUN 18 H (9-16) mg/dL Creatinine 0.84 (0.5-1.4) mg/dL Estim Creat Clear Calc 41.8 Estimated GFR > 60 Random Glucose 87 (60-115) mg/dL Calcium 10.3 H (8.4-10.2) mg/dL Total Bilirubin 0.3 (0.0-1.0) mg/dL AST 16 (5-31) U/L ALT 15 (0-31) U/L Alkaline Phosphatase 74 (39-117) U/L Troponin I High Sens < 2.7 (<3.5-17.0) ng/L Total Protein 6.2 L (6.5-8.0) g/dL Albumin 3.8 (3.5-5.0) g/dL Urine Color Yellow Urine Appearance Clear Urine pH 7.5 (5.0-9.0) Ur Specific [place] 1.010 (1.005-1.025) Urine Protein Negative (Neg-Trace) mg/dL Urine Glucose (UA) Negative (Negative) mg/dL Urine Ketones Negative (Negative) mg/dL Urine Blood Negative (Negative) Urine Nitrite Negative (Negative) Ur Leukocyte Esterase Negative (Negative) Independent Interpretation I performed an independent interpretation of an: Plain X-Ray and CT Scan Interpretation: My interpretation is in agreement with the radiologist's impression of these imaging studies. - EXAMINATION: XR HAND, LEFT CLINICAL INFORMATION: Left hand pain and bruising. Fall. COMPARISON: Left hand radiographs dated 01/25/2020. TECHNIQUE: PA, lateral, and oblique views of the left hand. FINDINGS: No acute fracture or dislocation. Postsurgical change consistent with joint fusion at the second proximal and distal interphalangeal joints. No evidence of hardware complication. Healed osteotomy across the fourth proximal phalanx. Severe joint space narrowing with ulnar subluxation of the metacarpophalangeal joints. Associated periarticular erosions. Findings are increased in prominence when compared to the prior examination. Severe joint space narrowing with bony remodeling and marginal osteophytes at the triscaphe and first and second carpal metacarpal joints, slightly progressed when compared to the prior examination. Prominent dorsal and ulnar soft tissue swelling. No radiopaque foreign body. XR/XR hand LT min 3V IMPRESSION: 1. Prominent dorsal and ulnar soft tissue swelling without radiopaque foreign body. 2. No acute fracture or dislocation. 3. Postsurgical change consistent with joint fusion at the second proximal and distal interphalangeal joints without evidence of hardware complication. 4. Joint space narrowing with periarticular erosions and ulnar subluxations at the metacarpophalangeal joints, progressed when compared to the prior examination and likely representing rheumatoid arthritis. Dictated By: Refugio Díaz MD Signed By: Electronically signed by Refugio Díaz MD 12/09/23 1131 - EXAMINATION: CT HEAD WITHOUT CONTRAST CLINICAL INFORMATION: Fall with head strike COMPARISON: CT head from 06/03/2023 TECHNIQUE: Contiguous axial imaging was performed from the skull base to vertex without intravenous administration of contrast. This CT examination was performed using dose optimization techniques as appropriate, variously including the following: *Automated exposure control *Adjustment of mA and/or kV according to patient size (this includes techniques or standardized protocols for targeted exams where dose is matched to indication/reason for exam; i.e. extremities or head) *Use of iterative reconstruction technique DLP: 608.31 mGy-cm FINDINGS: There is no evidence of acute intracranial hemorrhage or territorial infarction. Chronic white matter small vessel ischemic changes. Cerebral atrophy with commensurate ventricular changes. No abnormal mass effect or midline shift is seen. [place] to white matter differentiation is well preserved. No extra-axial fluid collections are identified. There is no abnormal attenuation within the brain parenchyma. Slight soft tissue prominence overlying the right frontal bone without underlying bony defect identified. The osseous structures and soft tissues are normal. The mastoid air cells and visualized portions of the paranasal sinuses are well aerated. CT/CT cervical spine wo IV con IMPRESSION: 1. No acute intracranial pathology. 2. Slight soft tissue prominence overlying the right frontal bone without underlying bony defect identified. 3. Chronic white matter small vessel ischemic changes. EXAMINATION: Noncontrast CT scan of the cervical spine. INDICATION: Fall head strike COMPARISON: CT cervical spine from 06/03/2023 TECHNIQUE: Helical, multidetector axial images were obtained from the occiput to the upper thorax. Coronal and sagittal reformats of the cervical spine were provided for interpretation. DLP: 228.7 mGy-cm FINDINGS: No acute fractures or dislocations of the cervical spine are seen. Postsurgical changes status post C3-C6 laminoplasty on the left, grossly intact. Grade 1-2 anterolisthesis of C5 on C6 and grade 1 anterolisthesis of T1 on T2. Dextrocurvature of the midthoracic spine. Multilevel degenerative changes. Anatomic alignment and positioning of the vertebral bodies and posterior elements is noted. The atlantoaxial joint and craniovertebral articulations are normal without evidence of subluxation. There is no prevertebral soft tissue swelling. The thyroid gland and visualized portions of the lung apices and mediastinum are unremarkable. IMPRESSION: 1. No acute fracture or dislocation. 2. Postsurgical changes status post C3-C6 laminoplasty on the left, grossly intact. 3. Grade 1-2 anterolisthesis of C5 on C6 and grade 1 anterolisthesis of T1 on T2. 4. Dextrocurvature of the midthoracic spine. 5. Multilevel degenerative changes. Dictated By: Benton Boyer MD Signed By: Electronically signed by Benton Boyer MD 12/09/23 1223 Radiology Impression Discussion of test interpretation with radiology: I have reviewed the radiologist's reading. Independent Historian Clinical information obtained from an independent historian. History obtained from or confirmed by: EMS (EMS provided additional history and confirmed the history provided by the patient.) Critical Care Time Critical Care Time Critical Care Time: Yes Total Critical Care Time: 31 Attestation: I spent 31 minutes of Critical Care Time with this patient. This does not include time spent on separately reported billable procedures. Discharge Plan Discharge Clinical Impression: Fall, Hematoma Patient Disposition: Still a Patient Prescriptions: No Action multivitamin Tablet 1 tab PO DAILY 90 Days Qty: 90 4RF Rx Instructions: May split for easier swallowing fluoxetine 40 mg capsule 40 mg PO Q2D Qty: 30 2RF fluoxetine 20 mg capsule 20 mg PO Q2D Qty: 30 2RF acetaminophen 325 mg tablet 650 mg PO Q6H PRN (Reason: pain) Qty: 240 1RF Myrbetriq 25 mg tablet extended release 24 hr 25 mg PO DAILY Qty: 28 3RF docusate sodium 100 mg capsule 100 mg PO DAILY Qty: 28 3RF lamotrigine 150 mg tablet 150 mg PO BEDTIME lamotrigine 25 mg tablet 125 tab PO QAM lithium carbonate 150 mg capsule 150 mg PO QAM sennosides [senna] 8.6 mg tablet 8.6 mg PO Q OTHER DAY melatonin 1 mg tablet 1 mg PO BEDTIME Print Language: Vincentian
--- NOTE | 2023-12-09 15:32 | PC.NURSE ---
spoke with pt brother/guardian/HCP Dwight- updated on pt condition and plan of care- stewart Quintanilla does not want [facility] as pt deconditions every time she has to go. Per Dwight pleasecontact him with any questions
[2023-12-09 15:51] VITALS: BP 142/89; PULSE 78; RESP 15; TEMP 36.6; O2SAT 99
--- NOTE | 2023-12-09 17:36 | MHC.CM.PN ---
Addendum entered by Dai Gallegos 12/09/23 17:49: Spoke w/staff at [facility]: pt's walker will be brought to the ED for pt to use at Monday's PT eval. Walker is marked w/phone number and pt's name. ED staff aware. Original Note: Received consult for assesment of d/c needs: pt from [facility] assisted living: hx of CP w/physical and intellectual delays/high fall hx. Pt w/worsening STM loss and falls: brought in for PT eval. Pt sleeping when ED CM attempted to meet with: Call placed to pt's HCP, brother Dwight. Dwight states he has been trying to support pt at [facility] but understands pt's decline. He states any type of prison would be the of (pt) her. Pt has been to several [facility] contracted SNF in the past and has returned weaker and never demonstrated full recovery. Dwight is hoping to avoid all terminal makeup operator and short term placement if possible. Discussed PT eval for better assessment of functional abilities. Of note, pt has a special weighted walker designed for her unique needs. ED CM to call [facility] to inquire on staff bringing walker to ED in anticipation of PT eval Monday. Dwight asks that all referrals be pending at this time until PT eval results. I want her to return to [facility] if at all possible....even if we have to get more supports [facility] and HCP on file. ED CM to follow for finalization of d/c disposition.
--- NOTE | 2023-12-09 18:45 | PC.NURSE ---
nurse was in per visitor in ED15 the side rail was lowered by pt, and pt lowered self to the floor. pt refuses vitals s/p pt found sitting on floor with saira bandage wrapped around neck. pt admits that she was trying to hurt herself because she is bad attempted to reassure pt that she is not bad . scaffolding helper to bedside admits SI once again. pt refuses vitals. told t/w to get out and stay out . 1:[address] for safety.
[2023-12-09 19:46] LABS: Ethanol < 10 mg/dL
[2023-12-09 20:49] VITALS: BP 134/81; PULSE 71; RESP 17; TEMP 36.9; O2SAT 96
[2023-12-09 21:19] LABS: Amphetamine Screen Urine Not Detected (Not Detect); Barbiturates, Urine Not Detected (Not Detect); Benzodiazepines Screen Urine Not Detected (Not Detect); Buprenorphine Scr Not Detected (Not Detect); Cannabinoid Screen Urine Not Detected (Not Detect); Cocaine Screen Urine Not Detected (Not Detect); Fentanyl, urine Not Detected (Not Detect); Methadone Screen, Urine Not Detected (Not Detect); Opiate Screen Urine Not Detected (Not Detect); Oxycodone Screen Urine Not Detected (Not Detect); Phencyclidine Screen Urine Not Detected (Not Detect)
--- NOTE | 2023-12-09 22:10 | PC.NURSE ---
pt refusing labwork- CRUZ lawler aware
--- NOTE | 2023-12-09 22:14 | PC.NURSE ---
while rounding on pt- pt stated that she did not like her dinner- offered pt ham sandwich and chocolate chip cookie, pt agrees, sitter remains in place for safety
--- NOTE | 2023-12-09 22:36 | PC.NURSE ---
Med rec completed from rx claim history
--- NOTE | 2023-12-10 04:26 | PC.NURSE ---
Took over care at 3am from TRACIE rebolledo, pt sleeping at this time, no sign of distress
[2023-12-10 06:19] VITALS: BP 142/83; PULSE 69; RESP 18; TEMP 36.3; O2SAT 99
--- NOTE | 2023-12-10 06:20 | PC.NURSE ---
pt changed over and reposition for comfort, pt remains on a 1:1
--- NOTE | 2023-12-10 07:18 | PHA.MEDREC ---
Addendum entered by Anamaria Jernigan RPh 12/10/23 07:41: CONFIRMED WITH SNF THAT PATIENT TAKES FLUOXETINE ON ALTERNATING DAYS (20 MG EVERY OTHER DAY AND 40 MG EVERY OTHER DAY). UNABLE TO CONFIRM WITH FACILITY WHICH DAY THEY WERE EACH TAKEN ON. Original Note: Pharmacy Consult ? Medication Reconciliation Pharmacy has completed the medication reconciliation. List faxed from [facility].
--- NOTE | 2023-12-10 07:27 | PC.NURSE ---
Eating breakfast, calm and cooperative, 1:[address]
--- NOTE | 2023-12-10 08:31 | MHC.EDTECH ---
Patient bed changed and patient washed up and zuly changed
--- NOTE | 2023-12-10 10:30 | PC.NURSE ---
Called pharmacy for med not in pyxsis around 9am to send med, called pharmacy at 10:30 am pharmacy stating they will send the medication but have sick patients in ICU they need to take care of first
[2023-12-10] MEDS: Multivitamin TABLET 1 TAB PO (10:38)
[2023-12-10] MEDS: Lithium Carbonate 300 MG TABLET 150 MG PO (10:38)
[2023-12-10] MEDS: lamoTRIgine 25 MG TABLET 75 MG PO (10:39)
[2023-12-10] MEDS: FLUoxetine HCl 20 MG CAPSULE PO (10:39)
--- NOTE | 2023-12-10 11:12 | MHC.CM.ED ---
Pt boarding in the ED awaiting PT chelsey for finalization of d/c plan. Pt from [facility]. Pt is now requiring a 1:1 sitter after being observed with an saira wrap around her neck. ED CM to follow. Pt's brother/HCP Dwight will arrive in [place] next Monday to visit pt.
[2023-12-10 11:28] LABS: Acetaminophen LAB < 3 mcg/mL (<30); Salicylate < 5.0 mg/dL (15-30)
--- NOTE | 2023-12-10 11:45 | MHC.EDTECH ---
Walked patient twice around whole ED with walker
--- NOTE | 2023-12-10 12:47 | MHC.EDTECH ---
Patient went for 2 laps with walker around the ED
[2023-12-10 14:41] VITALS: BP 115/76; PULSE 81; RESP 16; TEMP 36.6; O2SAT 100
[2023-12-10 16:13] VITALS: BP 119/82; PULSE 75; RESP 16; TEMP 36.6; O2SAT 97
--- NOTE | 2023-12-10 18:11 | PC.NURSE ---
Patient with wet brief, incontinence care provided
--- NOTE | 2023-12-10 21:38 | PC.NURSE ---
pt refused bedtime medications
--- NOTE | 2023-12-10 22:32 | PC.NURSE ---
pt refused social media designer from second RN. provider aware
--- NOTE | 2023-12-11 05:43 | PC.NURSE ---
pt resting on/off throughout the night, periods of yelling at times. sitter at bedside
[2023-12-11 06:45] VITALS: RESP 17
--- NOTE | 2023-12-11 08:35 | PC.NURSE ---
Pt restless, intermittently agitated and yelling at staff.
--- NOTE | 2023-12-11 09:21 | MHC.CM.ED ---
Patient remains in ER. Care Team assessment completed. Recommended psych consult. Psych consult is pending. Case Management consult deferred at this time.
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
[2023-12-11] MEDS: Sennosides 8.6 MG TABLET PO (11:19)
[2023-12-11] MEDS: Multivitamin TABLET 1 TAB PO (11:19)
[2023-12-11] MEDS: FLUoxetine HCl 20 MG CAPSULE 40 MG PO (11:20)
[2023-12-11] MEDS: lamoTRIgine 25 MG TABLET 75 MG PO (11:20)
[2023-12-11] MEDS: Lithium Carbonate 300 MG TABLET 150 MG PO (11:20)
--- NOTE | 2023-12-11 11:45 | PC.NURSE ---
Patient ambulating in [place] with staff member, patient using rollator walker, gait even.
[2023-12-11 11:51] VITALS: BP 118/95; PULSE 84; RESP 18; TEMP 36.7; O2SAT 100
[2023-12-11 11:51] LABS: Lithium 0.23 mmol/L (0.60-1.20)
[2023-12-11 12:15] LABS: TSH reflex Free T4 0.86 uIU/mL (0.32-4.0)
[2023-12-11 12:28] LABS: Folate 11.1 ng/mL (> or = 4.0); Vitamin B12 755 pg/mL (200-900)
[2023-12-11 16:20] LABS: COVID-19 Test Negative (Negative); IDNOW Serial# 08D9AD1C
[2023-12-11 20:25] VITALS: BP 145/76; PULSE 63; RESP 16; TEMP 36.7
[2023-12-11] MEDS: lamoTRIgine 25 MG TABLET 150 MG PO (21:08)
[2023-12-11] MEDS: Melatonin 3 MG TABLET 6 MG PO (21:08)
[2023-12-12 05:49] VITALS: BP 166/77; PULSE 83; RESP 20; TEMP 37.1; O2SAT 99
--- NOTE | 2023-12-12 05:51 | PC.NURSE ---
Assumed care of patient at 19:00. Pt continues in ED overflow, seen here s/p fall at SNF. Pt has visible bruising to left hand/wrist and face. +radial and dp pulses, +cms. Pt is A&Ox1, confused and intermittently shouting out of her room on spontaneously waking up from sleep overnight. Pt settled and back asleep easily after reassurance, redirecting, and warm blanket provided. Breathing is even and unlabored without distress on RA. Pt denies pain. Tolerated meds and water without issue. Ambulates with standby assist and her home walker to bathroom, voids odorless cyu. Bath provided this morning and pt returned to bed. Bed alarm on and safety measures in place.
[2023-12-12 07:46] VITALS: BP 141/74; PULSE 68; RESP 14; TEMP 36.6; O2SAT 97
[2023-12-12] MEDS: FLUoxetine HCl 20 MG CAPSULE PO (08:32)
[2023-12-12] MEDS: Sennosides 8.6 MG TABLET PO (08:32)
[2023-12-12] MEDS: Multivitamin TABLET 1 TAB PO (08:32)
[2023-12-12] MEDS: lamoTRIgine 25 MG TABLET 75 MG PO (08:32)
[2023-12-12] MEDS: Mirabegron 50 MG TAB.ER.24H PO (08:32)
[2023-12-12] MEDS: Lithium Carbonate 300 MG TABLET 150 MG PO (09:19)
--- NOTE | 2023-12-12 10:34 | MHC.CM.ED ---
Addendum entered by Christen Moreno 12/12/23 12:21: [facility] care team feel patient is at her baseline physically and mentally and can safely return to [facility]. Stiven HUERTAS booked for 2pm. Patient, brother Christine Quintanilla RN and Akosua ARROYO aware. Original Note: Patient remains in ER overflow. Patient is active with [facility]. T/W spoke with Conrado via telephone at [phone]. Clinical information faxed to him at [phone], so their care team can review and make d/c recommendations. Continue to monitor for d/c needs.
[2023-12-12 13:52] VITALS: BP 140/74; PULSE 68; RESP 16; TEMP 36.6; O2SAT 97
== END 2023-12-12 13:56 | disposition other institution (70) ==
PROVIDERS: Physician Assistant; Social Worker; Emergency Provider Emergency Medicine Emergency Medical Services; PCP Nurse Practitioner Family
DX: S60.222A Contusion of left hand, initial encounter (principal); S00.12XA Contusion of left eyelid and periocular area, initial encounter; S00.83XA Contusion of other part of head, initial encounter; W19.XXXA Unspecified fall, initial encounter; R45.851 Suicidal ideations; R45.1 Restlessness and agitation; R51.9 Headache, unspecified; R41.0 Disorientation, unspecified; G80.9 Cerebral palsy, unspecified; F33.1 Major depressive disorder, recurrent, moderate; R41.89 Other symptoms and signs involving cognitive functions and awareness; R29.6 Repeated falls; Z91.81 History of falling; Y93.9 Activity, unspecified; Y92.092 Bedroom in other non-institutional residence as the place of occurrence of the external cause; Y99.9 Unspecified external cause status; Z79.899 Other long term (current) drug therapy; Z11.52 Encounter for screening for COVID-19
CPT/HCPCS: 36415; 70450; 72125; 73130; 80053; 80143; 80178; 80179; 80307; 81003; 82607; 82746; 84443; 84484; 85025; 85610; 87635; 97162; 99285; S9485

== ENCOUNTER → 2023-12-09 10:54 | Outpatient (BNV) | payer OTHER, SELFPAY | PROVIDERS: Emergency Provider Emergency Medicine Emergency Medical Services; Visit Provider Social Worker | DX: F33.1 Major depressive disorder, recurrent, moderate (principal); R41.89 Other symptoms and signs involving cognitive functions and awareness | CPT/HCPCS: 99285 ==